=== PATIENT | male | born 1930 | race African-American/Black ===

== ENCOUNTER 2017-09-03 14:56 | Inpatient (IN) | payer MEDICARE, MEDICAID ==
[~2017-09-03] VITALS: Ht 182.9 cm; Wt 81.6 kg
[2017-09-03 16:39] LABS: BASOPHILS % (AUTO) 1.3 % (0.0-2.0); HEMATOCRIT 44.7 % (42.0-52.0); HEMOGLOBIN 13.7 G/DL (14.2-18.0); MEAN CORPUSCULAR VOLUME 100 FL (80-99); MONOCYTES % (AUTO) 14.9 % (1.0-10.0); NEUTROPHILS % (AUTO) 74.8 % (45.0-75.0); PLATELET COUNT 216 K/UL (150-450); RED BLOOD COUNT 4.48 M/UL (4.70-6.10); RED CELL DISTRIBUTION WIDTH 13.5 % (11.6-14.8); WHITE BLOOD COUNT 6.9 K/UL (4.8-10.8)
--- NOTE | 2017-09-03 16:51 | Diagnostic Imaging Report ---
Indication: Reason For Exam: WEAK Technique: One view of the chest Comparison: none Findings: The heart is normal in size. The aorta is tortuous and ectatic. The lungs and pleural spaces are clear. Impression: No acute process
[2017-09-03 16:56] LABS: ANION GAP 14 mmol/L (5-15); BLOOD UREA NITROGEN 39 mg/dL (7-18); CALCIUM 8.6 MG/DL (8.5-10.1); CARBON DIOXIDE 20 MMOL/L (21-32); CHLORIDE 108 MMOL/L (98-107); CREATININE 2.4 MG/DL (0.55-1.30); POTASSIUM 4.7 MMOL/L (3.5-5.1); SODIUM 142 MMOL/L (136-145)
[2017-09-03 17:05] LABS: APPEARANCE,URINE CLEAR; BILIRUBIN, URINE NEGATIVE (NEGATIVE); GLUCOSE, URINE (UA) NEGATIVE (NEGATIVE); KETONES,URINE 2+ (NEGATIVE); LEUKOCYTE ESTERASE ,URINE 1+ (NEGATIVE); NITRITE,URINE NEGATIVE (NEGATIVE); PH,URINE 5 (4.5-8.0); PROTEIN,URINE 3+ (NEGATIVE); UROBILINOGEN,URINE NORMAL MG/DL (0.0-1.0)
[2017-09-03 17:08] LABS: COLOR,URINE YELLOW
[2017-09-03 17:10] LABS: ALANINE AMINOTRANSFERASE 19 U/L (12-78); ALBUMIN 3.7 G/DL (3.4-5.0); ALBUMIN/GLOBULIN RATIO 0.9 (1.0-2.7); ALKALINE PHOSPHATASE 74 U/L (46-116); ASPARTATE AMINO TRANSFERASE 58 U/L (15-37); BILIRUBIN,TOTAL 0.4 MG/DL (0.2-1.0); CKMB 3.8 NG/ML (0.0-3.6); CREATINE KINASE 1336 U/L (26-308)
--- NOTE | 2017-09-03 18:13 | Emergency Room Report ---
History of Present Illness General Chief Complaint: Generalized Weakness Source: Patient, EMS Present Illness HPI 87-year-old male presents ED for evaluation. EMS states that patient is weak and unable to care for himself. [employer] told EMS that patient has not been eating well for the last few days has been bed bound. Patient states he feels weak. Has no energy. No appetite. Denies fevers chills. Denies chest pain shortness of breath. Patient states that he is not have any medical problems and is not taking medications. No aggravating relieving factors. Denies any other associated symptom Allergies: Coded Allergies: No Known Allergies (Unverified , 09/03/17) Patient History Past Medical History: none Past Surgical History: none Pertinent Family History: none Social History: Denies: smoking, alcohol use, drug use Immunizations: UTD Reviewed Nursing Documentation: PMH: Agreed, PSxH: Agreed Nursing Documentation-PM Past Medical History: No Stated History Review of Systems All Other Systems: negative except mentioned in HPI Physical Exam Vital Signs Date Time Temp Pulse Resp B/P (MAP) Pulse Ox O2 Delivery O2 Flow Rate FiO2 09/03/17 14:47 97.5 94 18 120/81 98 Room Air Sp02 EP Interpretation: reviewed, normal General Appearance: no apparent distress, alert, GCS 15, non-toxic, cachetic Head: normocephalic, atraumatic Eyes: bilateral eye normal inspection, bilateral eye PERRL ENT: hearing grossly normal, normal pharynx, no angioedema, normal voice Neck: full range of motion, supple/symm/no masses Respiratory: chest non-tender, lungs clear, normal breath sounds, speaking full sentences Cardiovascular #1: regular rate, rhythm, no edema Cardiovascular #2: 2+ carotid (R), 2+ carotid (L), 2+ radial (R), 2+ radial (L) , 2+ dorsalis pedis (R), 2+ dorsalis pedis (L) Gastrointestinal: normal bowel sounds, non tender, soft, non-distended, no guarding, no rebound Rectal: deferred Genitourinary: normal inspection, no CVA tenderness Musculoskeletal: back normal, gait/station normal, normal range of motion, non- tender Neurologic: alert, oriented x3, responsive, motor strength/tone normal, sensory intact, speech normal Psychiatric: judgement/insight normal, memory normal, mood/affect normal, no suicidal/homicidal ideation Reflexes: 3+ bicep (R), 3+ bicep (L), 3+ tricep (R), 3+ tricep (L), 3+ knee (R) , 3+ knee (L) Skin: normal color, no rash, warm/dry, well hydrated Lymphatic: no adenopathy Medical Decision Making Diagnostic Impression: Primary Impression: Failure to thrive Qualified Codes: R62.7 - Adult failure to thrive Additional Impressions: Renal insufficiency Rhabdomyolysis Qualified Codes: M62.82 - Rhabdomyolysis ER Course Hospital Course 87-year-old male presents ED for weakness, unable to care for self. Poor appetite Differential diagnoses include: sepsis, dehydration, rhabdo, UTI Clinical course patient placed on stretcher. On surveillance system monitor. After initial history and physical ordered labs, IV fluids, EKG, CXR Labs reviewed-BUN/Cr elevated,no leukocytosis, hemoglobin/hematocrit stable, CK > 1000, trop 0.046, BNP > 3000 EKG -PVCs CXR - no acute changes IVFs given. case discussed with Dr. Lemon and he agreed to accept the patient to his service for further care and support i. I feel this is a highly complex case requiring extensive working including EKG/Rhythm strip, Xray/CT/US, Blood/urine lab work, repeat exams while in ED, and administration of strong opiates/narcotics for pain control, admission to hospital or close patient follow up. Diagnosis - rhabdo, failure to thrive, renal insufficiency Admitted to telemetry in serious condition Labs Test 09/03/17 16:20 09/03/17 16:25 White Blood Count 6.9 K/UL (4.8-10.8) Red Blood Count 4.48 M/UL (4.70-6.10) Hemoglobin 13.7 G/DL (14.2-18.0) Hematocrit 44.7 % (42.0-52.0) Mean Corpuscular Volume 100 FL (80-99) Mean Corpuscular Hemoglobin 30.6 PG (27.0-31.0) Mean Corpuscular Hemoglobin Concent 30.7 G/DL (32.0-36.0) Red Cell Distribution Width 13.5 % (11.6-14.8) Platelet Count 216 K/UL (150-450) Mean Platelet Volume 6.0 FL (6.5-10.1) Neutrophils (%) (Auto) 74.8 % (45.0-75.0) Lymphocytes (%) (Auto) 9.0 % (20.0-45.0) Monocytes (%) (Auto) 14.9 % (1.0-10.0) Eosinophils (%) (Auto) 0.0 % (0.0-3.0) Basophils (%) (Auto) 1.3 % (0.0-2.0) Sodium Level 142 MMOL/L (136-145) Potassium Level 4.7 MMOL/L (3.5-5.1) Chloride Level 108 MMOL/L (98-107) Carbon Dioxide Level 20 MMOL/L (21-32) Anion Gap 14 mmol/L (5-15) Blood Urea Nitrogen 39 mg/dL (7-18) Creatinine 2.4 MG/DL (0.55-1.30) Estimat Glomerular Filtration Rate mL/min (>60) Glucose Level 127 MG/DL (74-106) Calcium Level 8.6 MG/DL (8.5-10.1) Total Bilirubin 0.4 MG/DL (0.2-1.0) Aspartate Amino Transf (AST/SGOT) 58 U/L (15-37) Alanine Aminotransferase (ALT/SGPT) 19 U/L (12-78) Alkaline Phosphatase 74 U/L (46-116) Total Creatine Kinase 1336 U/L (26-308) Creatine Kinase MB 3.8 NG/ML (0.0-3.6) Creatine Kinase MB Relative Index 0.2 Troponin I 0.046 ng/mL (0.000-0.056) Pro-B-Type Natriuretic Peptide 3050 pg/mL (0-125) Total Protein 7.7 G/DL (6.4-8.2) Albumin 3.7 G/DL (3.4-5.0) Globulin 4.0 g/dL Albumin/Globulin Ratio 0.9 (1.0-2.7) Urine Color Yellow Urine Appearance Clear Urine pH 5 (4.5-8.0) Urine Specific [place] 1.020 (1.005-1.035) Urine Protein 3+ (NEGATIVE) Urine Glucose (UA) Negative (NEGATIVE) Urine Ketones 2+ (NEGATIVE) Urine Occult Blood 4+ (NEGATIVE) Urine Nitrite Negative (NEGATIVE) Urine Bilirubin Negative (NEGATIVE) Urine Urobilinogen Normal MG/DL (0.0-1.0) Urine Leukocyte Esterase 1+ (NEGATIVE) Urine RBC 5-10 /HPF (0 - 0) Urine WBC 2-4 /HPF (0 - 0) Urine Squamous Epithelial Cells None /LPF (NONE/OCC) Urine Bacteria Few /HPF (NONE) EKG Diagnostic Results Rate: normal Rhythm: NSR ST Segments: other - PVCs ASA given to the pt in ED: No Rhythm Strip Diag. Results EP Interpretation: yes Rhythm: NSR, no ectopy Chest X-Ray Diagnostic Results Chest X-Ray Diagnostic Results : Chest X-Ray Ordered: Yes # of Views/Limited/Complete: 1 View Indication: Other - weakness EP Interpretation: Yes Interpretation: no consolidation, no effusion, no pneumothorax, no acute cardiopulmonary disease Impression: No acute disease Electronically Signed by: Electronically signed by Casey Temple MD Last Vital Signs Date Time Temp Pulse Resp B/P (MAP) Pulse Ox O2 Delivery O2 Flow Rate FiO2 09/03/17 14:47 97.5 94 18 120/81 98 Room Air Status: improved Disposition: ADMITTED INPATIENT Condition: Serious Referrals: NOT CHOSEN RAMIRO/,REFERRING (PCP) CASEY TEMPLE M.D. Sep 03, 2017 18:13
[2017-09-03 19:11] VITALS: BP 130/83
[2017-09-03 20:59] VITALS: BP 141/83
[2017-09-03] MEDS ORDERED: Miralax 17gm pkt ORAL PRN (21:15)
[2017-09-03] MEDS ORDERED: Nitroglycerin Subl 0.4mg tab SL PRN (21:15)
[2017-09-03] MEDS ORDERED: Acetaminophen 650 MG SUPP RECTAL PRN (21:15)
[2017-09-03] MEDS ORDERED: Milk of Magnesia 30ml Ud ORAL PRN (21:15)
[2017-09-03 21:44] VITALS: BP 155/75
[2017-09-03] MEDS: D5 1/2NS w/KCl 20mEq 1,000 ML IV SCH (22:41)
[2017-09-03] MEDS: Heparin 5000 units/ml inj SUBQ SCH (22:42)
[2017-09-04] MEDS: Heparin 5000 units/ml inj SUBQ SCH ×3 (05:37→21:10)
[2017-09-04 07:15] LABS: INR 1.1 (0.9-1.1)
[2017-09-04 07:40] LABS: ALANINE AMINOTRANSFERASE 19 U/L (12-78); ALBUMIN 2.8 G/DL (3.4-5.0); ALBUMIN/GLOBULIN RATIO 0.8 (1.0-2.7); ALKALINE PHOSPHATASE 60 U/L (46-116); ANION GAP 11 mmol/L (5-15); ASPARTATE AMINO TRANSFERASE 46 U/L (15-37); BILIRUBIN,TOTAL 0.3 MG/DL (0.2-1.0); BLOOD UREA NITROGEN 36 mg/dL (7-18); CALCIUM 7.6 MG/DL (8.5-10.1); CARBON DIOXIDE 21 MMOL/L (21-32); CHLORIDE 112 MMOL/L (98-107); CHOLESTEROL 115 MG/DL (< 200); CREATININE 2.2 MG/DL (0.55-1.30); PHOSPHORUS 2.7 MG/DL (2.5-4.9); POTASSIUM 4.1 MMOL/L (3.5-5.1); SODIUM 144 MMOL/L (136-145)
[2017-09-04] MEDS: Docusate 100mg cap ORAL SCH ×2 (08:15→21:08)
[2017-09-04] MEDS: Aspirin Baby 81mg ORAL SCH (08:15)
[2017-09-04 09:00] VITALS: BP 109/67
[2017-09-04] MEDS ORDERED: Pneumococcal Vaccine 25mcg/0.5ml IM ONE (10:00)
[2017-09-04] MEDS ORDERED: Flu Vaccine Quadrivalent 0.5ml IM ONE (10:00)
[2017-09-04] MEDS: D5 1/2NS w/KCl 20mEq 1,000 ML IV SCH (11:55)
[2017-09-04 12:00] VITALS: BP 124/88
[2017-09-04 16:00] VITALS: BP 137/82
--- NOTE | 2017-09-04 16:44 | History & Physical ---
History and Physical History & Physicial Dictated for Int Med-Dr Lemon no. [id number]. VANDANA LY Sep 04, 2017 16:44
--- NOTE | 2017-09-04 17:30 | History and Physical Report ---
DATE OF ADMISSION: 09/03/2017 CHIEF COMPLAINT: The patient is an 87-year-old male, who presents with a chief complaint of generalized weakness. HISTORY OF PRESENT ILLNESS: The patient states that he lives alone. The patient states he has become increasingly weak. The patient states, "just take me to the cemetery." The patient presented to [place] emergency room. The patient was admitted for generalized weakness. PAST MEDICAL HISTORY: The patient denies. PAST SURGICAL HISTORY: The patient denies. CURRENT MEDICATIONS: None. ALLERGIES: No known drug allergies. SOCIAL HISTORY: The patient is single and lives alone. The patient admits to occasional tobacco use. The patient has occasional alcohol use. REVIEW OF SYSTEMS: CONSTITUTIONAL: The patient denies weight loss or weight gain. The patient denies fevers or chills. HEENT: The patient denies ear or throat pain. The patient denies headache. CARDIOVASCULAR: The patient denies palpitations or chest pain. CHEST: The patient denies wheeze or shortness of breath. ABDOMEN: The patient denies nausea, vomiting, diarrhea, or constipation. GENITOURINARY: The patient denies dysuria or increased frequency of urination. NEUROMUSCULAR: The patient complains of generalized weakness as above. The patient denies seizures. PHYSICAL EXAMINATION: VITAL SIGNS: Temperature 97.4, respirations 18, pulse 63, and blood pressure 109/67. GENERAL: The patient is well-developed and well-nourished, thin-appearing elderly male, in no apparent distress. HEENT: Eyes, pupils are equal and responsive to light and accommodation. Extraocular movements are intact. NECK: Supple without lymphadenopathy. CHEST: Lungs are clear to auscultation bilaterally without wheezes or rales. CARDIOVASCULAR: Regular rate. S1 and S2 are normal without murmurs, rubs, or gallops. ABDOMEN: Soft, nontender, and nondistended. Positive bowel sounds. No evidence of hepatosplenomegaly. Currently, no rebound or guarding noted. EXTREMITIES: Negative for clubbing, cyanosis, or edema. RECTAL/GENITAL: Refused. NEUROLOGIC: Cranial nerves II to XII are grossly intact without focal deficits. Motor strength is 5/5 bilaterally. Deep tendon reflexes are 2+ plantar. LABORATORY STUDIES: WBC 6.9, hemoglobin 13.7, hematocrit 44.7, and platelets 216,000. Sodium 143, potassium 4.7, chloride 108, CO2 20, BUN 39, creatinine 2.4, and glucose 127. BNP elevated at 3050. Troponin elevated at 0.076. Chest x-ray was reported as no acute process. ASSESSMENT: This is an 87-year-old male. 1. Generalized weakness. 2. Elevated troponin. 3. Congestive heart failure. 4. Renal failure. TREATMENT: 1. Generalized weakness. This may be secondary to acute myocardial infarction versus acute renal failure. We will follow recommendations of Cardiology. We will follow recommendations of Nephrology. 2. Elevated troponin/congestive heart failure. Cardiology consultation was obtained with Dr. Lawrence Thorne. Serial troponin levels will be performed. An echocardiogram is pending. We will follow recommendations of Cardiology. 3. Renal failure. This may be prerenal with dehydration or may be acute on chronic renal failure. A renal ultrasound is pending. A Nephrology consultation was obtained with Dr. Wiley. Alo Skinner M.D. DR: DUC JOB#: [id number] CC:
--- NOTE | 2017-09-04 17:41 | Cardiac Electrophysiology PN ---
Subjective Subjective [id number] Objective Last 24 Hour Vital Signs Date Time Temp Pulse Resp B/P (MAP) Pulse Ox O2 Delivery O2 Flow Rate FiO2 09/04/17 12:00 62 09/04/17 12:00 97.7 74 19 124/88 97 Room Air 09/04/17 09:00 97.4 63 18 109/67 97 Room Air 09/04/17 08:00 63 09/04/17 04:00 69 09/04/17 00:00 72 09/03/17 21:44 97.9 70 18 155/75 96 Room Air 09/03/17 21:24 83 09/03/17 21:12 97.5 87 16 141/83 98 Room Air 09/03/17 20:59 87 16 141/83 98 Room Air 09/03/17 19:11 97.5 88 28 130/83 98 Room Air Intake and Output 09/03/17 09/04/17 19:00 07:00 Output Total 100 ml Balance -100 ml Output Urine Total 100 ml # Voids 1 Laboratory Tests Test 09/04/17 06:20 Prothrombin Time 11.1 SEC (9.30-11.50) Prothromb Time International Ratio 1.1 (0.9-1.1) Activated Partial Thromboplast Time 37 SEC (23-33) H Sodium Level 144 MMOL/L (136-145) Potassium Level 4.1 MMOL/L (3.5-5.1) Chloride Level 112 MMOL/L (98-107) H Carbon Dioxide Level 21 MMOL/L (21-32) Anion Gap 11 mmol/L (5-15) Blood Urea Nitrogen 36 mg/dL (7-18) H Creatinine 2.2 MG/DL (0.55-1.30) H Estimat Glomerular Filtration Rate mL/min (>60) Glucose Level 105 MG/DL (74-106) Calcium Level 7.6 MG/DL (8.5-10.1) L Phosphorus Level 2.7 MG/DL (2.5-4.9) Magnesium Level 2.1 MG/DL (1.8-2.4) Total Bilirubin 0.3 MG/DL (0.2-1.0) Aspartate Amino Transf (AST/SGOT) 46 U/L (15-37) H Alanine Aminotransferase (ALT/SGPT) 19 U/L (12-78) Alkaline Phosphatase 60 U/L (46-116) Troponin I 0.076 ng/mL (0.000-0.056) Total Protein 6.2 G/DL (6.4-8.2) L Albumin 2.8 G/DL (3.4-5.0) L Globulin 3.4 g/dL Albumin/Globulin Ratio 0.8 (1.0-2.7) L Cholesterol Level 115 MG/DL (< 200) Thyroid Stimulating Hormone (TSH) 1.449 uiU/mL (0.358-3.740) ROSAS CABEZAS Sep 04, 2017 17:41
[2017-09-05 00:32] VITALS: BP 115/64
--- NOTE | 2017-09-05 00:45 | Consultation ---
DATE OF CONSULTATION: 09/04/2017 CARDIOLOGY CONSULTATION CONSULTING PHYSICIAN: Lawrence Thorne M.D. REFERRING PHYSICIAN: Aj Lemon M.D. REASON FOR CONSULTATION: Generalized weakness. HISTORY OF PRESENT ILLNESS: The patient is an 87-year-old gentleman with no prior past medical or surgical history, who was brought to the emergency room for generalized weakness. The patient lives alone and he is feeling that he has been increasingly weak and weak and states just take me to cemetery. In the emergency room, the patient was admitted for generalized weakness and was found also to have mildly elevated troponin. He denies any chest pain or shortness of breath. REVIEW OF SYSTEMS: Review of Systems was performed and was negative other than what was mentioned in history of present illness. PAST MEDICAL HISTORY: None. PAST SURGICAL HISTORY: None. MEDICATIONS: Medications at home are none. ALLERGIES: He has no known drug allergies. PHYSICAL EXAMINATION: VITAL SIGNS: Blood pressure is 124/88, pulse 74, respirations 19, and he is afebrile. HEAD AND NECK: Shows no JVD or carotid bruits. LUNGS: Clear. CARDIOVASCULAR: Shows regular S1 and S2 with no gallop or murmur. ABDOMEN: Soft. EXTREMITIES: No pitting edema. LABORATORY DATA: White count 6.9, hemoglobin 13.7, hematocrit 44.7, platelets 216. Sodium 144, potassium 4.1, BUN of 36, creatinine 2.2, and glucose of 105. His troponin 0.046 and 0.076. BNP 3050. The CK is 1336. ASSESSMENT AND PLAN: 1. Elevated troponin, this could be due to the patient's renal failure, levels are not too high at 0.04 and 0.07. I will get another echocardiogram and repeat troponin in the morning. Repeat EKG as well. 2. Troponin leak., The levels are flat and is not too high, could be due to renal failure in view of creatinine of 2.2. 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 The patient has occasional premature ventricular contractions as well. He also underwent an echocardiogram, which showed ejection fraction of 60% to 65% and no wall motion abnormality. We will repeat EKG in the morning and give the patient aspirin and low-dose beta-gilma and check lipid profile. 3. Elevated CK of 1336, could be the cause of the patient's renal failure with rhabdomyolysis. 4. Renal failure. The patient has no prior history. Further evaluation by Nephrology. Thank you very much, . , for allowing me to participate in the care of this patient. Please do not hesitate to contact me for any questions regarding my evaluation. Lawrence Thorne M.D. DR: Ora JOB#: [id number] CC:
[2017-09-05] MEDS: D5 1/2NS w/KCl 20mEq 1,000 ML IV SCH ×2 (00:52→13:48)
[2017-09-05 04:39] VITALS: BP 138/83
[2017-09-05] MEDS: Heparin 5000 units/ml inj SUBQ SCH ×3 (05:48→21:11)
[2017-09-05 07:26] LABS: BASOPHILS % (AUTO) 0.9 % (0.0-2.0); HEMATOCRIT 38.7 % (42.0-52.0); HEMOGLOBIN 12.5 G/DL (14.2-18.0); LYMPHOCYTES % (AUTO) 26.7 % (20.0-45.0); MEAN CORPUSCULAR VOLUME 100 FL (80-99); MONOCYTES % (AUTO) 15.5 % (1.0-10.0); NEUTROPHILS % (AUTO) 56.8 % (45.0-75.0); PLATELET COUNT 164 K/UL (150-450); RED BLOOD COUNT 3.87 M/UL (4.70-6.10); RED CELL DISTRIBUTION WIDTH 13.6 % (11.6-14.8); WHITE BLOOD COUNT 5.3 K/UL (4.8-10.8)
[2017-09-05 07:52] LABS: ANION GAP 10 mmol/L (5-15); BLOOD UREA NITROGEN 31 mg/dL (7-18); CALCIUM 7.9 MG/DL (8.5-10.1); CARBON DIOXIDE 21 MMOL/L (21-32); CHLORIDE 113 MMOL/L (98-107); POTASSIUM 4.6 MMOL/L (3.5-5.1); SODIUM 144 MMOL/L (136-145)
[2017-09-05 08:00] VITALS: BP 123/78
[2017-09-05 08:26] LABS: CREATINE KINASE 764 U/L (26-308)
[2017-09-05] MEDS: Metoprolol Succinate XL 25mg tab ORAL SCH (08:42)
[2017-09-05] MEDS: Docusate 100mg cap ORAL SCH ×2 (08:42→21:08)
[2017-09-05] MEDS: Aspirin Baby 81mg ORAL SCH (08:42)
--- NOTE | 2017-09-05 11:58 | Cardiac Electrophysiology PN ---
Assessment/Plan Assessment/Plan 1. Elevated troponin, likely due to the patient's renal failure, The levels are not too high at 0.04 and 0.07. 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 The patient has occasional premature ventricular contractions as well. Echocardiogram showed ejection fraction of 60% to 65% and no wall motion abnormality. Continue aspirin and Toprol XL 25 daily. 2. Short run of SVT. Continue Betablocker. 3. Elevated CK of 1336, could be the cause of the patient's renal failure with rhabdomyolysis. 4. Renal failure. Further evaluation by Nephrology. AMBROSE RN Subjective Subjective Feeling weak. No chest pain or SOB. Objective Last 24 Hour Vital Signs Date Time Temp Pulse Resp B/P (MAP) Pulse Ox O2 Delivery O2 Flow Rate FiO2 09/05/17 08:42 69 123/78 09/05/17 08:00 67 09/05/17 08:00 98.1 69 20 123/78 97 09/05/17 04:39 96.2 74 18 138/83 95 Room Air 09/05/17 04:00 62 09/05/17 00:32 96.4 62 18 115/64 96 Room Air 09/05/17 00:00 75 09/04/17 20:14 99.3 67 18 09/04/17 20:00 62 09/04/17 16:00 98.3 63 19 137/82 96 Room Air 09/04/17 16:00 61 09/04/17 12:00 62 09/04/17 12:00 97.7 74 19 124/88 97 Room Air Intake and Output 09/04/17 09/05/17 19:00 07:00 Intake Total 395 ml 835 ml Output Total 200 ml Balance 395 ml 635 ml Intake Oral 320 ml IV Total 75 ml 835 ml Output Urine Total 200 ml # Voids 3 Laboratory Tests Test 09/05/17 06:10 White Blood Count 5.3 K/UL (4.8-10.8) Red Blood Count 3.87 M/UL (4.70-6.10) L Hemoglobin 12.5 G/DL (14.2-18.0) L Hematocrit 38.7 % (42.0-52.0) L Mean Corpuscular Volume 100 FL (80-99) H Mean Corpuscular Hemoglobin 32.3 PG (27.0-31.0) H Mean Corpuscular Hemoglobin Concent 32.3 G/DL (32.0-36.0) Red Cell Distribution Width 13.6 % (11.6-14.8) Platelet Count 164 K/UL (150-450) Mean Platelet Volume 6.5 FL (6.5-10.1) Neutrophils (%) (Auto) 56.8 % (45.0-75.0) Lymphocytes (%) (Auto) 26.7 % (20.0-45.0) Monocytes (%) (Auto) 15.5 % (1.0-10.0) H Eosinophils (%) (Auto) 0.0 % (0.0-3.0) Basophils (%) (Auto) 0.9 % (0.0-2.0) Sodium Level 144 MMOL/L (136-145) Potassium Level 4.6 MMOL/L (3.5-5.1) Chloride Level 113 MMOL/L (98-107) H Carbon Dioxide Level 21 MMOL/L (21-32) Anion Gap 10 mmol/L (5-15) Blood Urea Nitrogen 31 mg/dL (7-18) H Creatinine 2.0 MG/DL (0.55-1.30) H Estimat Glomerular Filtration Rate mL/min (>60) Glucose Level 100 MG/DL (74-106) Calcium Level 7.9 MG/DL (8.5-10.1) L Total Creatine Kinase 764 U/L (26-308) H Troponin I 0.068 ng/mL (0.000-0.056) Pro-B-Type Natriuretic Peptide 1301 pg/mL (0-125) H Objective HEAD AND NECK: No JVD or carotid bruits. LUNGS: Clear. CARDIOVASCULAR: Shows regular S1 and S2 with no gallop or murmur. ABDOMEN: Soft. EXTREMITIES: No pitting edema. ROSAS CABEZAS Sep 05, 2017 11:58
[2017-09-05 12:00] VITALS: BP 123/73
--- NOTE | 2017-09-05 13:09 | Internal Med Progress Note ---
Subjective Date of Service: Sep 05, 2017 Physician Name Alo Ly Attending Physician Aj Lemon MD Current Medications Medications (Trade) Dose Ordered Sig/Josefina Route PRN Reason Start Time Stop Time Status Last Admin Dose Admin Acetaminophen (Tylenol) 650 mg Q4H PRN ORAL Mild Pain (Scale 1-3)/Fever 09/03/17 21:15 10/03/17 21:14 Acetaminophen (Tylenol) 650 mg Q4H PRN RECTAL Mild Pain (Pain Scale 1-3) 09/03/17 21:15 10/03/17 21:14 Aspirin (ASA) 81 mg DAILY ORAL 09/04/17 09:00 10/04/17 08:59 09/05/17 08:42 Bisacodyl (Dulcolax) 10 mg DAILYPRN PRN RECTAL Constipation 3rd Line Agent 09/03/17 21:15 10/03/17 21:14 Dextrose (Dextrose 50%) STAT PRN IV Hypoglycemia 09/03/17 21:15 10/03/17 21:14 Dextrose/ Electrolytes 1,000 ml @ 75 mls/hr [id number] IV 09/03/17 22:30 10/03/17 22:29 09/05/17 00:52 Docusate Sodium (Colace) 100 mg EVERY 12 HOURS ORAL 09/04/17 09:00 10/04/17 08:59 09/05/17 08:42 Heparin Sodium (Porcine) (Heparin 5000 units/ml) 5,000 units EVERY 8 HOURS SUBQ 09/03/17 22:00 10/03/17 21:59 09/05/17 05:48 Magnesium Hydroxide (Mom) 30 ml HSPRN PRN ORAL Constipation 2nd Line Agent 09/03/17 21:15 10/03/17 21:14 Metoprolol Succinate (Toprol XL) 25 mg DAILY ORAL 09/05/17 09:00 10/05/17 08:59 09/05/17 08:42 Nitroglycerin (Ntg) 0.4 mg Q5MIN X 3 DOSES PRN SL Prn Chest Pain 09/03/17 21:15 10/03/17 21:14 Ondansetron HCl (Zofran) 4 mg Q6H PRN IVP Nausea & Vomiting 09/03/17 21:15 10/03/17 21:14 Polyethylene Glycol (Miralax) 17 gm DAILYPRN PRN ORAL Constipation 1st Line agent 09/03/17 21:15 10/03/17 21:14 Allergies: Coded Allergies: No Known Allergies (Unverified , 09/03/17) ROS Limited/Unobtainable: No Constitutional: Reports: no symptoms HEENT: Reports: no symptoms Cardiovascular: Reports: no symptoms Respiratory: Reports: no symptoms Gastrointestinal/Abdominal: Reports: no symptoms Genitourinary: Reports: no symptoms Neurologic/Psychiatric: Reports: weakness Subjective 87 YO M admitted with gen weakness. Now rhabdomyolysis and renal failure-await renal consult. Cover for Int Med-Dr Lemon Objective Last Vital Signs Date Time Temp Pulse Resp B/P (MAP) Pulse Ox O2 Delivery O2 Flow Rate FiO2 09/05/17 12:00 98.1 66 19 123/73 95 09/05/17 04:39 Room Air General Appearance: WD/WN, no apparent distress, alert EENT: PERRL/EOMI, normal ENT inspection, TMs normal Neck: non-tender, normal alignment, supple, normal inspection Cardiovascular: normal peripheral pulses, normal rate, regular rhythm, no gallop/murmur, no JVD Respiratory/Chest: chest wall non-tender, lungs clear, normal breath sounds, no respiratory distress, no accessory muscle use Abdomen: normal bowel sounds, non tender, soft, no organomegaly, no mass Extremities: normal range of motion, non-tender Skin: normal pigmentation, warm/dry Laboratory Tests Test 09/05/17 06:10 White Blood Count 5.3 K/UL (4.8-10.8) Red Blood Count 3.87 M/UL (4.70-6.10) L Hemoglobin 12.5 G/DL (14.2-18.0) L Hematocrit 38.7 % (42.0-52.0) L Mean Corpuscular Volume 100 FL (80-99) H Mean Corpuscular Hemoglobin 32.3 PG (27.0-31.0) H Mean Corpuscular Hemoglobin Concent 32.3 G/DL (32.0-36.0) Red Cell Distribution Width 13.6 % (11.6-14.8) Platelet Count 164 K/UL (150-450) Mean Platelet Volume 6.5 FL (6.5-10.1) Neutrophils (%) (Auto) 56.8 % (45.0-75.0) Lymphocytes (%) (Auto) 26.7 % (20.0-45.0) Monocytes (%) (Auto) 15.5 % (1.0-10.0) H Eosinophils (%) (Auto) 0.0 % (0.0-3.0) Basophils (%) (Auto) 0.9 % (0.0-2.0) Sodium Level 144 MMOL/L (136-145) Potassium Level 4.6 MMOL/L (3.5-5.1) Chloride Level 113 MMOL/L (98-107) H Carbon Dioxide Level 21 MMOL/L (21-32) Anion Gap 10 mmol/L (5-15) Blood Urea Nitrogen 31 mg/dL (7-18) H Creatinine 2.0 MG/DL (0.55-1.30) H Estimat Glomerular Filtration Rate mL/min (>60) Glucose Level 100 MG/DL (74-106) Calcium Level 7.9 MG/DL (8.5-10.1) L Total Creatine Kinase 764 U/L (26-308) H Troponin I 0.068 ng/mL (0.000-0.056) Pro-B-Type Natriuretic Peptide 1301 pg/mL (0-125) H Intake and Output 09/04/17 09/05/17 19:00 07:00 Intake Total 395 ml 835 ml Output Total 200 ml Balance 395 ml 635 ml Intake Oral 320 ml IV Total 75 ml 835 ml Output Urine Total 200 ml # Voids 3 Assessment/Plan Problem List: (1) Generalized weakness (2) Elevated troponin I level Assessment & Plan: ?due to renal failure? See cardiology note. (3) CHF (congestive heart failure) Assessment & Plan: See cardiology consult. (4) Renal failure Assessment & Plan: ?Dehydration?-continue IV fluids Await renal ultrasound and nephrology consult. (5) Rhabdomyolysis Assessment & Plan: Cont IV fluids. Status: not improved ALO LY Sep 05, 2017 13:09
[2017-09-05 16:00] VITALS: BP 116/58
[2017-09-05 20:20] VITALS: BP 128/76
[2017-09-06] VITALS: BP 116/71
[2017-09-06] MEDS: D5 1/2NS w/KCl 20mEq 1,000 ML IV SCH (04:00)
[2017-09-06 04:10] VITALS: BP 134/90
[2017-09-06] MEDS: Heparin 5000 units/ml inj SUBQ SCH ×3 (06:00→21:19)
[2017-09-06 07:36] LABS: CREATINE KINASE 878 U/L (26-308)
[2017-09-06 07:41] LABS: BASOPHILS % (AUTO) 0.4 % (0.0-2.0); HEMATOCRIT 36.2 % (42.0-52.0); HEMOGLOBIN 11.7 G/DL (14.2-18.0); LYMPHOCYTES % (AUTO) 25.3 % (20.0-45.0); MEAN CORPUSCULAR VOLUME 99 FL (80-99); NEUTROPHILS % (AUTO) 61.2 % (45.0-75.0); PLATELET COUNT 188 K/UL (150-450); RED BLOOD COUNT 3.64 M/UL (4.70-6.10); RED CELL DISTRIBUTION WIDTH 13.6 % (11.6-14.8); WHITE BLOOD COUNT 6.5 K/UL (4.8-10.8)
[2017-09-06 08:00] VITALS: BP 132/88
[2017-09-06 08:19] LABS: ANION GAP 12 mmol/L (5-15); BLOOD UREA NITROGEN 34 mg/dL (7-18); CALCIUM 7.4 MG/DL (8.5-10.1); CARBON DIOXIDE 19 MMOL/L (21-32); CHLORIDE 113 MMOL/L (98-107); POTASSIUM 4.8 MMOL/L (3.5-5.1); SODIUM 144 MMOL/L (136-145)
[2017-09-06] MEDS: Aspirin Baby 81mg ORAL SCH (08:37)
[2017-09-06] MEDS: Metoprolol Succinate XL 25mg tab ORAL SCH (08:38)
[2017-09-06] MEDS: Docusate 100mg cap ORAL SCH ×3 (08:38→18:00)
--- NOTE | 2017-09-06 08:47 | Cardiac Electrophysiology PN ---
Assessment/Plan Assessment/Plan 1. Elevated troponin, likely due to renal failure,The levels are not too high and flat at 0.04 and 0.07 and 0.08. No chest pain. 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 The patient has occasional premature ventricular contractions as well. Echocardiogram showed ejection fraction of 60% to 65% and no wall motion abnormality. Continue aspirin and Toprol XL 25 daily. 2. Short run of SVT. Continue Betablocker. 3. Elevated CK of 1336, could be the cause of the patient's renal failure with rhabdomyolysis. 4. Renal failure. Cr 2.0 5. SNIF placement pending DW RN Subjective Subjective Feeling weak. No chest pain or SOB or arrhythmias overnight. Objective Last 24 Hour Vital Signs Date Time Temp Pulse Resp B/P (MAP) Pulse Ox O2 Delivery O2 Flow Rate FiO2 09/06/17 08:38 73 134/90 09/06/17 04:10 99.7 73 20 134/90 94 Room Air 09/06/17 04:00 76 09/06/17 00:00 98.1 70 18 116/71 96 09/06/17 00:00 69 09/05/17 20:20 98.4 63 17 128/76 93 09/05/17 20:00 62 09/05/17 16:00 66 09/05/17 16:00 97.7 77 18 116/58 97 09/05/17 12:00 98.1 66 19 123/73 95 09/05/17 12:00 69 Intake and Output 09/05/17 09/06/17 19:00 07:00 Intake Total 360 ml Balance 360 ml Intake Oral 360 ml # Voids 4 Laboratory Tests Test 09/06/17 04:40 White Blood Count 6.5 K/UL (4.8-10.8) Red Blood Count 3.64 M/UL (4.70-6.10) L Hemoglobin 11.7 G/DL (14.2-18.0) L Hematocrit 36.2 % (42.0-52.0) L Mean Corpuscular Volume 99 FL (80-99) Mean Corpuscular Hemoglobin 32.1 PG (27.0-31.0) H Mean Corpuscular Hemoglobin Concent 32.3 G/DL (32.0-36.0) Red Cell Distribution Width 13.6 % (11.6-14.8) Platelet Count 188 K/UL (150-450) Mean Platelet Volume 6.4 FL (6.5-10.1) L Neutrophils (%) (Auto) 61.2 % (45.0-75.0) Lymphocytes (%) (Auto) 25.3 % (20.0-45.0) Monocytes (%) (Auto) 13.0 % (1.0-10.0) H Eosinophils (%) (Auto) 0.0 % (0.0-3.0) Basophils (%) (Auto) 0.4 % (0.0-2.0) Sodium Level 144 MMOL/L (136-145) Potassium Level 4.8 MMOL/L (3.5-5.1) Chloride Level 113 MMOL/L (98-107) H Carbon Dioxide Level 19 MMOL/L (21-32) L Anion Gap 12 mmol/L (5-15) Blood Urea Nitrogen 34 mg/dL (7-18) H Creatinine 2.0 MG/DL (0.55-1.30) H Estimat Glomerular Filtration Rate mL/min (>60) Glucose Level 107 MG/DL (74-106) H Calcium Level 7.4 MG/DL (8.5-10.1) L Total Creatine Kinase 878 U/L (26-308) H Troponin I 0.081 ng/mL (0.000-0.056) Pro-B-Type Natriuretic Peptide 2793 pg/mL (0-125) H Objective HEAD AND NECK: No JVD . LUNGS: Clear. CARDIOVASCULAR: Regular S1 and S2 with no gallop or murmur. ABDOMEN: Soft. EXTREMITIES: No pitting edema. ROSAS CABEZAS Sep 06, 2017 08:47
--- NOTE | 2017-09-06 10:17 | Consultation ---
Consult Note Consult Note asked to eval for renal failure- CHIEF COMPLAINT: The patient is an 87-year-old male, who presents with a chief complaint of generalized weakness. The patient states that he lives alone. The patient states he has become increasingly weak. The patient states, "[place] take [place] the [place]." interviewed examined data reviewed Assessment/Plan Status: renal failure- ? acute ? Rhabdo ?Underlying CKD , Proteinuria Elevated troponin : Echo ejection fraction of 60% to 65% and no wall motion abnormality. Anemia Plan: Hydrate- Monitor CPK avoid Nephrotoxics Monitor renal parameters keep BP in check start Flomax per orders CORINNE WIGGINS Sep 06, 2017 10:17
[2017-09-06 10:53] LABS: CHOLESTEROL 99 MG/DL (< 200); HDL CHOLESTEROL 38 MG/DL (40-60); PHOSPHORUS 2.3 MG/DL (2.5-4.9); TRIGLYCERIDES 63 MG/DL (30-150)
[2017-09-06] MEDS: D5 1/2NS 1,000 ML IV SCH (11:25)
[2017-09-06] MEDS: Tamsulosin 0.4mg cap ORAL SCH ×2 (11:26→21:17)
--- NOTE | 2017-09-06 11:47 | Internal Med Progress Note ---
Subjective Date of Service: Sep 06, 2017 Physician Name SusanneVandana Attending Physician Aj Lemon MD Current Medications Medications (Trade) Dose Ordered Sig/Josefina Route PRN Reason Start Time Stop Time Status Last Admin Dose Admin Acetaminophen (Tylenol) 650 mg Q4H PRN RECTAL Mild Pain (Pain Scale 1-3) 09/03/17 21:15 10/03/17 21:14 Aspirin (ASA) 81 mg DAILY ORAL 09/04/17 09:00 10/04/17 08:59 09/06/17 08:37 Bisacodyl (Dulcolax) 10 mg DAILYPRN PRN RECTAL Constipation 3rd Line Agent 09/03/17 21:15 10/03/17 21:14 Dextrose (Dextrose 50%) STAT PRN IV Hypoglycemia 09/03/17 21:15 10/03/17 21:14 Dextrose/Sodium Chloride 1,000 ml @ 75 mls/hr [id number] IV 09/06/17 11:00 10/06/17 10:59 09/06/17 11:25 Docusate Sodium (Colace) 100 mg TID ORAL 09/06/17 13:00 10/04/17 08:59 Heparin Sodium (Porcine) (Heparin 5000 units/ml) 5,000 units EVERY 8 HOURS SUBQ 09/03/17 22:00 10/03/17 21:59 09/05/17 21:11 Magnesium Hydroxide (Mom) 30 ml HSPRN PRN ORAL Constipation 2nd Line Agent 09/03/17 21:15 10/03/17 21:14 Metoprolol Succinate (Toprol XL) 25 mg DAILY ORAL 09/05/17 09:00 10/05/17 08:59 09/06/17 08:38 Nitroglycerin (Ntg) 0.4 mg Q5MIN X 3 DOSES PRN SL Prn Chest Pain 09/03/17 21:15 10/03/17 21:14 Ondansetron HCl (Zofran) 4 mg Q6H PRN IVP Nausea & Vomiting 09/03/17 21:15 10/03/17 21:14 Polyethylene Glycol (Miralax) 17 gm DAILYPRN PRN ORAL Constipation 1st Line agent 09/03/17 21:15 10/03/17 21:14 Tamsulosin HCl (Flomax) 0.4 mg BID ORAL 09/06/17 11:00 10/06/17 10:59 09/06/17 11:26 Allergies: Coded Allergies: No Known Allergies (Unverified , 09/03/17) ROS Limited/Unobtainable: No Constitutional: Reports: no symptoms HEENT: Reports: no symptoms Cardiovascular: Reports: no symptoms Respiratory: Reports: no symptoms Gastrointestinal/Abdominal: Reports: no symptoms Genitourinary: Reports: no symptoms Neurologic/Psychiatric: Reports: no symptoms Subjective 87 YO M admitted with gen weakness. Now rhabdomyolysis and renal failure. Cover for Int Med-Dr Lemon Objective Last Vital Signs Date Time Temp Pulse Resp B/P (MAP) Pulse Ox O2 Delivery O2 Flow Rate FiO2 09/06/17 08:38 73 134/90 09/06/17 08:00 99.3 22 96 09/06/17 04:10 Room Air Laboratory Tests Test 09/06/17 04:40 White Blood Count 6.5 K/UL (4.8-10.8) Red Blood Count 3.64 M/UL (4.70-6.10) L Hemoglobin 11.7 G/DL (14.2-18.0) L Hematocrit 36.2 % (42.0-52.0) L Mean Corpuscular Volume 99 FL (80-99) Mean Corpuscular Hemoglobin 32.1 PG (27.0-31.0) H Mean Corpuscular Hemoglobin Concent 32.3 G/DL (32.0-36.0) Red Cell Distribution Width 13.6 % (11.6-14.8) Platelet Count 188 K/UL (150-450) Mean Platelet Volume 6.4 FL (6.5-10.1) L Neutrophils (%) (Auto) 61.2 % (45.0-75.0) Lymphocytes (%) (Auto) 25.3 % (20.0-45.0) Monocytes (%) (Auto) 13.0 % (1.0-10.0) H Eosinophils (%) (Auto) 0.0 % (0.0-3.0) Basophils (%) (Auto) 0.4 % (0.0-2.0) Sodium Level 144 MMOL/L (136-145) Potassium Level 4.8 MMOL/L (3.5-5.1) Chloride Level 113 MMOL/L (98-107) H Carbon Dioxide Level 19 MMOL/L (21-32) L Anion Gap 12 mmol/L (5-15) Blood Urea Nitrogen 34 mg/dL (7-18) H Creatinine 2.0 MG/DL (0.55-1.30) H Estimat Glomerular Filtration Rate mL/min (>60) Glucose Level 107 MG/DL (74-106) H Hemoglobin A1c 5.9 % (4.3-6.0) Uric Acid 7.9 MG/DL (2.6-7.2) H Calcium Level 7.4 MG/DL (8.5-10.1) L Phosphorus Level 2.3 MG/DL (2.5-4.9) L Magnesium Level 1.9 MG/DL (1.8-2.4) Total Creatine Kinase 878 U/L (26-308) H Troponin I 0.081 ng/mL (0.000-0.056) C-Reactive Protein, Quantitative 3.4 mg/dL (0.00-0.90) H Pro-B-Type Natriuretic Peptide 2793 pg/mL (0-125) H Triglycerides Level 63 MG/DL (30-150) Cholesterol Level 99 MG/DL (< 200) LDL Cholesterol 50 mg/dL (<100) HDL Cholesterol 38 MG/DL (40-60) L Cholesterol/HDL Ratio 2.6 (3.3-4.4) L Vitamin B12 Level 302 PG/ML (193-986) Intake and Output 09/05/17 09/06/17 19:00 07:00 Intake Total 360 ml 360 ml Balance 360 ml 360 ml Intake Oral 360 ml 360 ml # Voids 4 4 Objective General Appearance: WD/WN, no apparent distress, alert EENT: PERRL/EOMI, normal ENT inspection, TMs normal Neck: non-tender, normal alignment, supple, normal inspection Cardiovascular: normal peripheral pulses, normal rate, regular rhythm, no gallop/murmur, no JVD Respiratory/Chest: chest wall non-tender, lungs clear, normal breath sounds, no respiratory distress, no accessory muscle use Abdomen: normal bowel sounds, non tender, soft, no organomegaly, no mass Extremities: normal range of motion, non-tender Skin: normal pigmentation, warm/dry Assessment/Plan Problem List: (1) Generalized weakness (2) Elevated troponin I level Assessment & Plan: ?due to renal failure? See cardiology note. (3) CHF (congestive heart failure) Assessment & Plan: See cardiology consult. (4) Renal failure Assessment & Plan: ?Dehydration?-continue IV fluids Await renal ultrasound - see nephrology consult. (5) Rhabdomyolysis Assessment & Plan: Cont IV fluids. Status: not improved VANDANA LY Sep 06, 2017 11:47
[2017-09-06 12:00] VITALS: BP 113/85
--- NOTE | 2017-09-06 13:39 | Diagnostic Imaging Report ---
Indication: Cough Technique: XRAY Chest 1v Comparison: 08/26/2017 Findings: Heart size and mediastinal contours are stable, including tortuosity and ectasia of the thoracic aorta. There is no focal airspace consolidation, pleural effusion or pneumothorax. No evidence of pulmonary edema. No acute osseous abnormality seen. Impression: No radiographic evidence of acute cardiopulmonary disease. No significant interval change from exam 3 days prior.
[2017-09-06 20:00] VITALS: BP 95/69
[2017-09-07] VITALS: BP 89/63
[2017-09-07] MEDS: D5 1/2NS 1,000 ML IV SCH ×3 (00:37→15:00)
[2017-09-07 04:00] VITALS: BP 97/67
[2017-09-07] MEDS: Heparin 5000 units/ml inj SUBQ SCH ×3 (07:02→21:02)
[2017-09-07 07:32] LABS: BASOPHILS % (AUTO) 0.5 % (0.0-2.0); HEMATOCRIT 29.7 % (42.0-52.0); HEMOGLOBIN 9.5 G/DL (14.2-18.0); LYMPHOCYTES % (AUTO) 12.7 % (20.0-45.0); MEAN CORPUSCULAR VOLUME 99 FL (80-99); MONOCYTES % (AUTO) 10.2 % (1.0-10.0); NEUTROPHILS % (AUTO) 76.6 % (45.0-75.0); PLATELET COUNT 178 K/UL (150-450); RED BLOOD COUNT 3.01 M/UL (4.70-6.10); RED CELL DISTRIBUTION WIDTH 13.6 % (11.6-14.8); WHITE BLOOD COUNT 9.9 K/UL (4.8-10.8)
[2017-09-07 08:00] VITALS: BP 94/67
[2017-09-07 08:10] LABS: ALANINE AMINOTRANSFERASE 14 U/L (12-78); ALBUMIN 2.2 G/DL (3.4-5.0); ALBUMIN/GLOBULIN RATIO 0.6 (1.0-2.7); ALKALINE PHOSPHATASE 46 U/L (46-116); ANION GAP 11 mmol/L (5-15); ASPARTATE AMINO TRANSFERASE 43 U/L (15-37); BILIRUBIN,TOTAL 0.3 MG/DL (0.2-1.0); BLOOD UREA NITROGEN 46 mg/dL (7-18); CALCIUM 7.3 MG/DL (8.5-10.1); CARBON DIOXIDE 16 MMOL/L (21-32); CHLORIDE 115 MMOL/L (98-107); CREATININE 2.5 MG/DL (0.55-1.30); PHOSPHORUS 3.2 MG/DL (2.5-4.9); POTASSIUM 4.7 MMOL/L (3.5-5.1); SODIUM 142 MMOL/L (136-145)
[2017-09-07] MEDS: Aspirin Baby 81mg ORAL SCH (08:57)
[2017-09-07] MEDS: Tamsulosin 0.4mg cap ORAL SCH ×2 (08:58→18:19)
[2017-09-07] MEDS: Metoprolol Succinate XL 25mg tab ORAL SCH (08:59)
[2017-09-07] MEDS: Docusate 100mg cap ORAL SCH ×3 (08:59→18:19)
--- NOTE | 2017-09-07 11:49 | Internal Med Progress Note ---
Subjective Date of Service: Sep 07, 2017 Physician Name Alo Ly Attending Physician Aj Lemon MD Current Medications Medications (Trade) Dose Ordered Sig/Josefina Route PRN Reason Start Time Stop Time Status Last Admin Dose Admin Acetaminophen (Tylenol) 650 mg Q4H PRN RECTAL Mild Pain (Pain Scale 1-3) 09/03/17 21:15 10/03/17 21:14 Aspirin (ASA) 81 mg DAILY ORAL 09/04/17 09:00 10/04/17 08:59 09/07/17 08:57 Bisacodyl (Dulcolax) 10 mg DAILYPRN PRN RECTAL Constipation 3rd Line Agent 09/03/17 21:15 10/03/17 21:14 Dextrose (Dextrose 50%) STAT PRN IV Hypoglycemia 09/03/17 21:15 10/03/17 21:14 Dextrose/Sodium Chloride 1,000 ml @ 75 mls/hr [id number] IV 09/06/17 11:00 10/06/17 10:59 09/07/17 00:37 Docusate Sodium (Colace) 100 mg TID ORAL 09/06/17 13:00 10/04/17 08:59 09/07/17 08:59 Heparin Sodium (Porcine) (Heparin 5000 units/ml) 5,000 units EVERY 8 HOURS SUBQ 09/03/17 22:00 10/03/17 21:59 09/07/17 07:02 Magnesium Hydroxide (Mom) 30 ml HSPRN PRN ORAL Constipation 2nd Line Agent 09/03/17 21:15 10/03/17 21:14 Metoprolol Succinate (Toprol XL) 25 mg DAILY ORAL 09/05/17 09:00 10/05/17 08:59 09/06/17 08:38 Nitroglycerin (Ntg) 0.4 mg Q5MIN X 3 DOSES PRN SL Prn Chest Pain 09/03/17 21:15 10/03/17 21:14 Ondansetron HCl (Zofran) 4 mg Q6H PRN IVP Nausea & Vomiting 09/03/17 21:15 10/03/17 21:14 Polyethylene Glycol (Miralax) 17 gm DAILYPRN PRN ORAL Constipation 1st Line agent 09/03/17 21:15 10/03/17 21:14 Tamsulosin HCl (Flomax) 0.4 mg BID ORAL 09/06/17 11:00 10/06/17 10:59 09/07/17 08:58 Allergies: Coded Allergies: No Known Allergies (Unverified , 09/03/17) ROS Limited/Unobtainable: No Constitutional: Reports: no symptoms HEENT: Reports: no symptoms Cardiovascular: Reports: no symptoms Respiratory: Reports: no symptoms Gastrointestinal/Abdominal: Reports: no symptoms Genitourinary: Reports: no symptoms Neurologic/Psychiatric: Reports: no symptoms Subjective 87 YO M admitted with gen weakness. Now rhabdomyolysis and renal failure. [place] but arousable. Cover for Int Med-Dr Lemon Objective Last Vital Signs Date Time Temp Pulse Resp B/P (MAP) Pulse Ox O2 Delivery O2 Flow Rate FiO2 09/07/17 08:00 93 09/07/17 08:00 98.2 20 94/67 100 Nasal Cannula 09/07/17 07:26 3.0 32 Laboratory Tests Test 09/07/17 06:35 White Blood Count 9.9 K/UL (4.8-10.8) # Red Blood Count 3.01 M/UL (4.70-6.10) L Hemoglobin 9.5 G/DL (14.2-18.0) L Hematocrit 29.7 % (42.0-52.0) L Mean Corpuscular Volume 99 FL (80-99) Mean Corpuscular Hemoglobin 31.7 PG (27.0-31.0) H Mean Corpuscular Hemoglobin Concent 32.1 G/DL (32.0-36.0) Red Cell Distribution Width 13.6 % (11.6-14.8) Platelet Count 178 K/UL (150-450) Mean Platelet Volume 5.9 FL (6.5-10.1) L Neutrophils (%) (Auto) 76.6 % (45.0-75.0) H Lymphocytes (%) (Auto) 12.7 % (20.0-45.0) L Monocytes (%) (Auto) 10.2 % (1.0-10.0) H Eosinophils (%) (Auto) 0.0 % (0.0-3.0) Basophils (%) (Auto) 0.5 % (0.0-2.0) Sodium Level 142 MMOL/L (136-145) Potassium Level 4.7 MMOL/L (3.5-5.1) Chloride Level 115 MMOL/L (98-107) H Carbon Dioxide Level 16 MMOL/L (21-32) L Anion Gap 11 mmol/L (5-15) Blood Urea Nitrogen 46 mg/dL (7-18) H Creatinine 2.5 MG/DL (0.55-1.30) H Estimat Glomerular Filtration Rate mL/min (>60) Glucose Level 151 MG/DL (74-106) H Calcium Level 7.3 MG/DL (8.5-10.1) L Phosphorus Level 3.2 MG/DL (2.5-4.9) Magnesium Level 1.9 MG/DL (1.8-2.4) Total Bilirubin 0.3 MG/DL (0.2-1.0) Aspartate Amino Transf (AST/SGOT) 43 U/L (15-37) H Alanine Aminotransferase (ALT/SGPT) 14 U/L (12-78) Alkaline Phosphatase 46 U/L (46-116) C-Reactive Protein, Quantitative 4.3 mg/dL (0.00-0.90) H Pro-B-Type Natriuretic Peptide 1348 pg/mL (0-125) H Total Protein 5.6 G/DL (6.4-8.2) L Albumin 2.2 G/DL (3.4-5.0) L Globulin 3.4 g/dL Albumin/Globulin Ratio 0.6 (1.0-2.7) L Intake and Output 09/06/17 09/07/17 19:00 07:00 Intake Total 240 ml 1200 ml Balance 240 ml 1200 ml Intake Oral 240 ml IV Total 0 ml 1200 ml # Voids 2 # Bowel Movements 1 Objective General Appearance: WD/WN, no apparent distress, alert EENT: PERRL/EOMI, normal ENT inspection, TMs normal Neck: non-tender, normal alignment, supple, normal inspection Cardiovascular: normal peripheral pulses, normal rate, regular rhythm, no gallop/murmur, no JVD Respiratory/Chest: chest wall non-tender, lungs clear, normal breath sounds, no respiratory distress, no accessory muscle use Abdomen: normal bowel sounds, non tender, soft, no organomegaly, no mass Extremities: normal range of motion, non-tender Skin: normal pigmentation, warm/dry Assessment/Plan Problem List: (1) Generalized weakness (2) Elevated troponin I level Assessment & Plan: ?due to renal failure? See cardiology note. (3) CHF (congestive heart failure) Assessment & Plan: See cardiology consult. (4) Renal failure Assessment & Plan: ?Dehydration?-continue IV fluids Await renal ultrasound - see nephrology consult. (5) Rhabdomyolysis Assessment & Plan: Cont IV fluids. Status: not improved ALO LY Sep 07, 2017 11:49
[2017-09-07 12:00] VITALS: BP 94/68
--- NOTE | 2017-09-07 12:05 | Diagnostic Imaging Report ---
Indication: Reason For Exam: PAIN Technique: 3 views of the right shoulder Comparison: none Findings: No acute fractures. No dislocations. Small ossific densities in the acromioclavicular joint may represent old injury or be developmental in nature. Impression: No acute process
--- NOTE | 2017-09-07 12:32 | Cardiac Electrophysiology PN ---
Assessment/Plan Assessment/Plan 1. Elevated troponin, likely due to renal failure.The levels are low and flat at 0.04 and 0.07 and 0.08. No chest pain. 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 Echocardiogram showed ejection fraction of 60% to 65% and no wall motion abnormality. Continue aspirin and Toprol XL 25 daily. 2. Short run of SVT. Continue Betablocker. 3. Elevated CK of 1336, could be the cause of the patient's renal failure with rhabdomyolysis. 4. Renal failure. Cr 2.0 5. SNIF placement pending DW RN Subjective Subjective Feeling weak. No chest pain or SOB. Not eating well. Objective Last 24 Hour Vital Signs Date Time Temp Pulse Resp B/P (MAP) Pulse Ox O2 Delivery O2 Flow Rate FiO2 09/07/17 08:00 93 09/07/17 08:00 98.2 91 20 94/67 100 Nasal Cannula 09/07/17 07:26 Nasal Cannula 3.0 32 09/07/17 07:26 91 Nasal Cannula 3.0 36 09/07/17 04:00 97.9 87 20 97/67 100 Nasal Cannula 09/07/17 04:00 87 09/07/17 00:00 98.6 88 24 89/63 95 Nasal Cannula 09/07/17 00:00 86 09/06/17 20:05 81 09/06/17 20:00 98.2 81 36 95/69 88 Room Air 09/06/17 16:00 78 Intake and Output 09/06/17 09/07/17 19:00 07:00 Intake Total 240 ml 1200 ml Balance 240 ml 1200 ml Intake Oral 240 ml IV Total 0 ml 1200 ml # Voids 2 # Bowel Movements 1 Laboratory Tests Test 09/07/17 06:35 White Blood Count 9.9 K/UL (4.8-10.8) # Red Blood Count 3.01 M/UL (4.70-6.10) L Hemoglobin 9.5 G/DL (14.2-18.0) L Hematocrit 29.7 % (42.0-52.0) L Mean Corpuscular Volume 99 FL (80-99) Mean Corpuscular Hemoglobin 31.7 PG (27.0-31.0) H Mean Corpuscular Hemoglobin Concent 32.1 G/DL (32.0-36.0) Red Cell Distribution Width 13.6 % (11.6-14.8) Platelet Count 178 K/UL (150-450) Mean Platelet Volume 5.9 FL (6.5-10.1) L Neutrophils (%) (Auto) 76.6 % (45.0-75.0) H Lymphocytes (%) (Auto) 12.7 % (20.0-45.0) L Monocytes (%) (Auto) 10.2 % (1.0-10.0) H Eosinophils (%) (Auto) 0.0 % (0.0-3.0) Basophils (%) (Auto) 0.5 % (0.0-2.0) Sodium Level 142 MMOL/L (136-145) Potassium Level 4.7 MMOL/L (3.5-5.1) Chloride Level 115 MMOL/L (98-107) H Carbon Dioxide Level 16 MMOL/L (21-32) L Anion Gap 11 mmol/L (5-15) Blood Urea Nitrogen 46 mg/dL (7-18) H Creatinine 2.5 MG/DL (0.55-1.30) H Estimat Glomerular Filtration Rate mL/min (>60) Glucose Level 151 MG/DL (74-106) H Calcium Level 7.3 MG/DL (8.5-10.1) L Phosphorus Level 3.2 MG/DL (2.5-4.9) Magnesium Level 1.9 MG/DL (1.8-2.4) Total Bilirubin 0.3 MG/DL (0.2-1.0) Aspartate Amino Transf (AST/SGOT) 43 U/L (15-37) H Alanine Aminotransferase (ALT/SGPT) 14 U/L (12-78) Alkaline Phosphatase 46 U/L (46-116) C-Reactive Protein, Quantitative 4.3 mg/dL (0.00-0.90) H Pro-B-Type Natriuretic Peptide 1348 pg/mL (0-125) H Total Protein 5.6 G/DL (6.4-8.2) L Albumin 2.2 G/DL (3.4-5.0) L Globulin 3.4 g/dL Albumin/Globulin Ratio 0.6 (1.0-2.7) L Objective HEAD AND NECK: No JVD . LUNGS: Clear. CARDIOVASCULAR: Regular S1 and S2 with no gallop or murmur. ABDOMEN: Soft. EXTREMITIES: No pitting edema. ROSAS CABEZAS Sep 07, 2017 12:32
[2017-09-07] MEDS ORDERED: Nitroglycerin Subl 0.4mg tab SL PRN (14:30)
--- NOTE | 2017-09-07 15:17 | Nephrology Progress Note ---
Assessment/Plan Problem List: (1) Renal failure (2) Rhabdomyolysis (3) CHF (congestive heart failure) (4) Failure to thrive Assessment Status: renal failure- ? acute ? Rhabdo ?Underlying CKD , Proteinuria Elevated troponin : Echo ejection fraction of 60% to 65% and no wall motion abnormality. Anemia Plan Plan: Hydrate- Monitor CPK avoid Nephrotoxics Monitor renal parameters keep BP in check start Flomax per orders Subjective ROS Limited/Unobtainable: No Constitutional: Reports: malaise, other - uncoaporative Objective Objective Last 24 Hour Vital Signs Date Time Temp Pulse Resp B/P (MAP) Pulse Ox O2 Delivery O2 Flow Rate FiO2 09/07/17 12:00 98.1 88 22 94/68 100 Nasal Cannula 09/07/17 08:00 93 09/07/17 08:00 98.2 91 20 94/67 100 Nasal Cannula 09/07/17 07:26 Nasal Cannula 3.0 32 09/07/17 07:26 91 Nasal Cannula 3.0 36 09/07/17 04:00 97.9 87 20 97/67 100 Nasal Cannula 09/07/17 04:00 87 09/07/17 00:00 98.6 88 24 89/63 95 Nasal Cannula 09/07/17 00:00 86 09/06/17 20:05 81 09/06/17 20:00 98.2 81 36 95/69 88 Room Air 09/06/17 16:00 78 Intake and Output 09/06/17 09/07/17 19:00 07:00 Intake Total 240 ml 1200 ml Balance 240 ml 1200 ml Intake Oral 240 ml IV Total 0 ml 1200 ml # Voids 2 # Bowel Movements 1 Laboratory Tests 09/07/17 06:35: White Blood Count 9.9#, Red Blood Count 3.01L, Hemoglobin 9.5L, Hematocrit 29.7L , Mean Corpuscular Volume 99, Mean Corpuscular Hemoglobin 31.7H, Mean Corpuscular Hemoglobin Concent 32.1, Red Cell Distribution Width 13.6, Platelet Count 178, Mean Platelet Volume 5.9L, Neutrophils (%) (Auto) 76.6H, Lymphocytes (%) (Auto) 12.7L, Monocytes (%) (Auto) 10.2H, Eosinophils (%) (Auto) 0.0, Basophils (%) (Auto) 0.5, Sodium Level 142, Potassium Level 4.7, Chloride Level 115H, Carbon Dioxide Level 16L, Anion Gap 11, Blood Urea Nitrogen 46H, Creatinine 2.5H, Estimat Glomerular Filtration Rate , Glucose Level 151H, Calcium Level 7.3L, Phosphorus Level 3.2, Magnesium Level 1.9, Total Bilirubin 0.3, Aspartate Amino Transf (AST/SGOT) 43H, Alanine Aminotransferase (ALT/SGPT) 14, Alkaline Phosphatase 46, Total Creatine Kinase [Pending], C-Reactive Protein , Quantitative 4.3H, Pro-B-Type Natriuretic Peptide 1348H, Total Protein 5.6L, Albumin 2.2L, Globulin 3.4, Albumin/Globulin Ratio 0.6L Height (Feet): 6 Height (Inches): 0.00 Weight (Pounds): 180 General Appearance: no apparent distress, lethargic Cardiovascular: tachycardia Respiratory/Chest: decreased breath sounds Abdomen: soft CORINNE WIGGINS Sep 07, 2017 15:17
[2017-09-07 15:29] LABS: CREATINE KINASE 594 U/L (26-308)
[2017-09-07 16:00] VITALS: BP 94/70
[2017-09-07] MEDS ORDERED: Albumin Human 5% 500ml IV ONE (16:00)
[2017-09-07] MEDS ORDERED: Acetaminophen 650 MG SUPP RECTAL PRN (17:15)
[2017-09-07 20:00] VITALS: BP 111/62
[2017-09-07] MEDS ORDERED: Miralax 17gm pkt ORAL PRN (21:15)
[2017-09-07] MEDS ORDERED: Milk of Magnesia 30ml Ud ORAL PRN (21:15)
[2017-09-08] VITALS: BP 108/68
[2017-09-08] MEDS: D5 1/2NS 1,000 ML IV SCH ×2 (03:45→18:46)
[2017-09-08 04:00] VITALS: BP 102/67
[2017-09-08] MEDS: Heparin 5000 units/ml inj SUBQ SCH ×3 (06:08→21:22)
[2017-09-08 07:33] LABS: HEMATOCRIT 23.1 % (42.0-52.0); HEMOGLOBIN 7.3 G/DL (14.2-18.0); MEAN CORPUSCULAR VOLUME 97 FL (80-99); PLATELET COUNT 216 K/UL (150-450); RED BLOOD COUNT 2.38 M/UL (4.70-6.10); RED CELL DISTRIBUTION WIDTH 13.3 % (11.6-14.8); WHITE BLOOD COUNT 9.7 K/UL (4.8-10.8)
[2017-09-08 07:45] LABS: ALANINE AMINOTRANSFERASE 12 U/L (12-78); ALBUMIN 2.6 G/DL (3.4-5.0); ALBUMIN/GLOBULIN RATIO 0.9 (1.0-2.7); ALKALINE PHOSPHATASE 40 U/L (46-116); ANION GAP 12 mmol/L (5-15); ASPARTATE AMINO TRANSFERASE 36 U/L (15-37); BILIRUBIN,TOTAL 0.3 MG/DL (0.2-1.0); BLOOD UREA NITROGEN 54 mg/dL (7-18); CALCIUM 7.3 MG/DL (8.5-10.1); CARBON DIOXIDE 18 MMOL/L (21-32); CHLORIDE 115 MMOL/L (98-107); CREATINE KINASE 492 U/L (26-308); CREATININE 2.7 MG/DL (0.55-1.30); POTASSIUM 4.4 MMOL/L (3.5-5.1); SODIUM 145 MMOL/L (136-145)
[2017-09-08 07:46] LABS: ALANINE AMINOTRANSFERASE 14 U/L (12-78); ALBUMIN 2.6 G/DL (3.4-5.0); ALKALINE PHOSPHATASE 41 U/L (46-116); ASPARTATE AMINO TRANSFERASE 37 U/L (15-37); BILIRUBIN,DIRECT 0.2 MG/DL (0.0-0.3); BILIRUBIN,TOTAL 0.4 MG/DL (0.2-1.0); PHOSPHORUS 2.7 MG/DL (2.5-4.9)
[2017-09-08 08:00] VITALS: BP 111/71
[2017-09-08] MEDS: Metoprolol Succinate XL 25mg tab ORAL SCH (09:00)
[2017-09-08] MEDS: Aspirin Baby 81mg ORAL SCH (09:33)
[2017-09-08] MEDS: Docusate 100mg cap ORAL SCH ×3 (09:33→18:00)
[2017-09-08] MEDS: Tamsulosin 0.4mg cap ORAL SCH ×2 (09:33→18:00)
[2017-09-08 12:00] VITALS: BP 115/70
--- NOTE | 2017-09-08 13:16 | Cardiac Electrophysiology PN ---
Assessment/Plan Assessment/Plan 1. Elevated troponin, likely due to renal failure.The levels are low and flat at 0.04 , 0.07 and 0.08. No chest pain. EKG shows sinus rhythm with left anterior fascicular block with no acute ST-T wave abnormalities with occasional premature ventricular contractions. Echocardiogram showed ejection fraction of 60% to 65% and no wall motion abnormality. Continue aspirin and Toprol XL 25 daily. 2. Short run of SVT. Continue Toprol 3. Elevated CK of 1336, could be the cause of the patient's renal failure with rhabdomyolysis. 4. Renal failure. Cr 2.7 5. SNIF placement pending 6. Dysphagia. May need PEG 7. Anemia with Hb dr0p from 13 to 12>11>10>9>7 Stool OB pending. Follow up by Gi DW Dr Skinner Subjective Subjective Not eating well.Had Calorie count today. Objective Last 24 Hour Vital Signs Date Time Temp Pulse Resp B/P (MAP) Pulse Ox O2 Delivery O2 Flow Rate FiO2 09/08/17 12:00 97.6 81 18 115/70 97 09/08/17 09:00 60 102/67 09/08/17 08:00 97.7 84 20 111/71 95 09/08/17 04:00 98.1 60 20 102/67 95 Room Air 09/08/17 00:00 97.0 96 20 108/68 96 Room Air 09/07/17 20:00 98.4 95 20 111/62 95 09/07/17 19:30 93 Nasal Cannula 3.0 36 09/07/17 19:30 Nasal Cannula 3.0 32 09/07/17 16:00 97.7 88 22 94/70 93 Nasal Cannula Intake and Output 09/07/17 09/08/17 19:00 07:00 Intake Total 495 ml 990 ml Balance 495 ml 990 ml Intake Oral 120 ml 240 ml IV Total 375 ml 750 ml # Voids 1 3 Laboratory Tests Test 09/08/17 06:10 White Blood Count 9.7 K/UL (4.8-10.8) Red Blood Count 2.38 M/UL (4.70-6.10) L Hemoglobin 7.3 G/DL (14.2-18.0) L Hematocrit 23.1 % (42.0-52.0) L Mean Corpuscular Volume 97 FL (80-99) Mean Corpuscular Hemoglobin 30.8 PG (27.0-31.0) Mean Corpuscular Hemoglobin Concent 31.7 G/DL (32.0-36.0) L Red Cell Distribution Width 13.3 % (11.6-14.8) Platelet Count 216 K/UL (150-450) Mean Platelet Volume 6.0 FL (6.5-10.1) L Neutrophils (%) (Auto) % (45.0-75.0) Lymphocytes (%) (Auto) % (20.0-45.0) Monocytes (%) (Auto) % (1.0-10.0) Eosinophils (%) (Auto) % (0.0-3.0) Basophils (%) (Auto) % (0.0-2.0) Differential Total Cells Counted 100 Neutrophils % (Manual) 75 % (45-75) Lymphocytes % (Manual) 11 % (20-45) L Monocytes % (Manual) 12 % (1-10) H Eosinophils % (Manual) 0 % (0-3) Basophils % (Manual) 0 % (0-2) Band Neutrophils 2 % (0-8) Platelet Estimate Adequate Platelet Morphology Normal Hypochromasia 1+ Sodium Level 145 MMOL/L (136-145) Potassium Level 4.4 MMOL/L (3.5-5.1) Chloride Level 115 MMOL/L (98-107) H Carbon Dioxide Level 18 MMOL/L (21-32) L Anion Gap 12 mmol/L (5-15) Blood Urea Nitrogen 54 mg/dL (7-18) H Creatinine 2.7 MG/DL (0.55-1.30) H Estimat Glomerular Filtration Rate mL/min (>60) Glucose Level 127 MG/DL (74-106) H Uric Acid 8.1 MG/DL (2.6-7.2) H Calcium Level 7.3 MG/DL (8.5-10.1) L Phosphorus Level 2.7 MG/DL (2.5-4.9) Magnesium Level 2.0 MG/DL (1.8-2.4) Total Bilirubin 0.4 MG/DL (0.2-1.0) Direct Bilirubin 0.2 MG/DL (0.0-0.3) Aspartate Amino Transf (AST/SGOT) 37 U/L (15-37) Alanine Aminotransferase (ALT/SGPT) 14 U/L (12-78) Alkaline Phosphatase 41 U/L (46-116) L Total Creatine Kinase 492 U/L (26-308) H Total Protein 5.6 G/DL (6.4-8.2) L Albumin 2.6 G/DL (3.4-5.0) L Globulin 3.0 g/dL Albumin/Globulin Ratio 0.9 (1.0-2.7) L Objective HEAD AND NECK: No JVD. LUNGS: Clear. CARDIOVASCULAR: Regular S1 and S2 with no gallop or murmur. ABDOMEN: Soft. EXTREMITIES: No pitting edema. ROSAS CABEZAS Sep 08, 2017 13:16
[2017-09-08 16:00] VITALS: BP 120/65
--- NOTE | 2017-09-08 16:02 | Nephrology Progress Note ---
Assessment/Plan Problem List: (1) Renal failure (2) Rhabdomyolysis (3) CHF (congestive heart failure) (4) Failure to thrive Assessment Status: H&H lower renal failure- ? acute ? Rhabdo Cr rising ?Underlying CKD , Proteinuria Elevated troponin : Echo ejection fraction of 60% to 65% and no wall motion abnormality. Anemia Plan Plan: brown transfuse Hydrate- Monitor CPK avoid Nephrotoxics Monitor renal parameters keep BP in check start Flomax per orders Subjective ROS Limited/Unobtainable: No Constitutional: Reports: malaise, weakness Objective Objective Last 24 Hour Vital Signs Date Time Temp Pulse Resp B/P (MAP) Pulse Ox O2 Delivery O2 Flow Rate FiO2 09/08/17 13:58 96 Room Air 21 09/08/17 13:58 Room Air 21 09/08/17 12:00 97.6 81 18 115/70 97 09/08/17 09:00 60 102/67 09/08/17 08:00 97.7 84 20 111/71 95 09/08/17 04:00 98.1 60 20 102/67 95 Room Air 09/08/17 00:00 97.0 96 20 108/68 96 Room Air 09/07/17 20:00 98.4 95 20 111/62 95 09/07/17 19:30 93 Nasal Cannula 3.0 36 09/07/17 19:30 Nasal Cannula 3.0 32 09/07/17 16:00 97.7 88 22 94/70 93 Nasal Cannula Intake and Output 09/07/17 09/08/17 18:59 06:59 Intake Total 420 ml 990 ml Balance 420 ml 990 ml Intake Oral 120 ml 240 ml IV Total 300 ml 750 ml # Voids 1 3 Laboratory Tests 09/08/17 06:10: White Blood Count 9.7, Red Blood Count 2.38L, Hemoglobin 7.3L, Hematocrit 23.1L , Mean Corpuscular Volume 97, Mean Corpuscular Hemoglobin 30.8, Mean Corpuscular Hemoglobin Concent 31.7L, Red Cell Distribution Width 13.3, Platelet Count 216, Mean Platelet Volume 6.0L, Neutrophils (%) (Auto) , Lymphocytes (%) (Auto) , Monocytes (%) (Auto) , Eosinophils (%) (Auto) , Basophils (%) (Auto) , Differential Total Cells Counted 100, Neutrophils % ( Manual) 75, Lymphocytes % (Manual) 11L, Monocytes % (Manual) 12H, Eosinophils % (Manual) 0, Basophils % (Manual) 0, Band Neutrophils 2, Platelet Estimate Adequate, Platelet Morphology Normal, Hypochromasia 1+, Sodium Level 145, Potassium Level 4.4, Chloride Level 115H, Carbon Dioxide Level 18L, Anion Gap 12 , Blood Urea Nitrogen 54H, Creatinine 2.7H, Estimat Glomerular Filtration Rate , Glucose Level 127H, Uric Acid 8.1H, Calcium Level 7.3L, Phosphorus Level 2.7, Magnesium Level 2.0, Total Bilirubin 0.4, Direct Bilirubin 0.2, Aspartate Amino Transf (AST/SGOT) 37, Alanine Aminotransferase (ALT/SGPT) 14, Alkaline Phosphatase 41L, Total Creatine Kinase 492H, Total Protein 5.6L, Albumin 2.6L, Globulin 3.0, Albumin/Globulin Ratio 0.9L Height (Feet): 6 Height (Inches): 0.00 Weight (Pounds): 180 General Appearance: no apparent distress, lethargic Cardiovascular: normal rate Respiratory/Chest: decreased breath sounds Abdomen: soft Objective no other changes CORINNE WIGGINS Sep 08, 2017 16:02
[2017-09-08 16:53] LABS: FERRITIN 545 NG/ML (8-388)
[2017-09-08 17:03] LABS: % IRON SATURATION 8 % (15-50); IRON 10 ug/dL (50-175); TOTAL IRON BINDING CAPACITY 125 ug/dL (250-450)
--- NOTE | 2017-09-08 17:29 | Pulmonology Progress Note ---
Assessment/Plan Problems: (1) Severe malnutrition (2) Anemia (3) Elevated troponin I level (4) Renal failure (5) CHF (congestive heart failure) (6) Generalized weakness Assessment/Plan improving all noted f/u electrolytes dc planning soon. Subjective ROS Limited/Unobtainable: No Allergies: Coded Allergies: No Known Allergies (Unverified , 09/03/17) Objective Last 24 Hour Vital Signs Date Time Temp Pulse Resp B/P (MAP) Pulse Ox O2 Delivery O2 Flow Rate FiO2 09/08/17 16:00 98.0 79 18 120/65 09/08/17 13:58 96 Room Air 21 09/08/17 13:58 Room Air 21 09/08/17 12:00 97.6 81 18 115/70 97 09/08/17 09:00 60 102/67 09/08/17 08:00 97.7 84 20 111/71 95 09/08/17 04:00 98.1 60 20 102/67 95 Room Air 09/08/17 00:00 97.0 96 20 108/68 96 Room Air 09/07/17 20:00 98.4 95 20 111/62 95 09/07/17 19:30 93 Nasal Cannula 3.0 36 09/07/17 19:30 Nasal Cannula 3.0 32 Intake and Output 09/07/17 09/08/17 19:00 07:00 Intake Total 495 ml 990 ml Balance 495 ml 990 ml Intake Oral 120 ml 240 ml IV Total 375 ml 750 ml # Voids 1 3 Objective General Appearance: WD/WN HEENT: normocephalic, atraumatic Respiratory/Chest: chest wall non-tender, lungs clear Abdomen: normal bowel sounds, soft, non tender Genitourinary: normal external genitalia Skin: no lesions Laboratory Tests 09/08/17 06:10: White Blood Count 9.7, Red Blood Count 2.38L, Hemoglobin 7.3L, Hematocrit 23.1L , Mean Corpuscular Volume 97, Mean Corpuscular Hemoglobin 30.8, Mean Corpuscular Hemoglobin Concent 31.7L, Red Cell Distribution Width 13.3, Platelet Count 216, Mean Platelet Volume 6.0L, Neutrophils (%) (Auto) , Lymphocytes (%) (Auto) , Monocytes (%) (Auto) , Eosinophils (%) (Auto) , Basophils (%) (Auto) , Differential Total Cells Counted 100, Neutrophils % ( Manual) 75, Lymphocytes % (Manual) 11L, Monocytes % (Manual) 12H, Eosinophils % (Manual) 0, Basophils % (Manual) 0, Band Neutrophils 2, Platelet Estimate Adequate, Platelet Morphology Normal, Hypochromasia 1+, Sodium Level 145, Potassium Level 4.4, Chloride Level 115H, Carbon Dioxide Level 18L, Anion Gap 12 , Blood Urea Nitrogen 54H, Creatinine 2.7H, Estimat Glomerular Filtration Rate , Glucose Level 127H, Uric Acid 8.1H, Calcium Level 7.3L, Phosphorus Level 2.7, Magnesium Level 2.0, Iron Level 10L, Total Iron Binding Capacity 125L, Percent Iron Saturation 8L, Unsaturated Iron Binding 115, Ferritin 545H, Total Bilirubin 0.4, Direct Bilirubin 0.2, Aspartate Amino Transf (AST/SGOT) 37, Alanine Aminotransferase (ALT/SGPT) 14, Alkaline Phosphatase 41L, Total Creatine Kinase 492H, Total Protein 5.6L, Albumin 2.6L, Globulin 3.0, Albumin/ Globulin Ratio 0.9L, Folate 3.9L Current Medications Medications (Trade) Dose Ordered Sig/Josefina Route PRN Reason Start Time Stop Time Status Last Admin Dose Admin Acetaminophen (Tylenol) 650 mg Q4H PRN RECTAL Mild Pain (Pain Scale 1-3) 09/07/17 17:15 10/03/17 21:14 Aspirin (ASA) 81 mg DAILY ORAL 09/08/17 09:00 10/04/17 08:59 09/08/17 09:33 Bisacodyl (Dulcolax) 10 mg DAILYPRN PRN RECTAL Constipation 3rd Line Agent 09/07/17 21:15 10/03/17 21:14 Dextrose (Dextrose 50%) STAT PRN IV Hypoglycemia 09/07/17 21:15 10/03/17 21:14 Dextrose/Sodium Chloride 1,000 ml @ 75 mls/hr [id number] IV 09/07/17 15:00 10/06/17 14:59 09/08/17 03:45 Docusate Sodium (Colace) 100 mg TID ORAL 09/07/17 18:00 10/04/17 08:59 09/08/17 14:51 Heparin Sodium (Porcine) (Heparin 5000 units/ml) 5,000 units EVERY 8 HOURS SUBQ 09/07/17 22:00 10/03/17 21:59 09/08/17 14:52 Metoprolol Succinate (Toprol XL) 25 mg DAILY ORAL 09/08/17 09:00 10/05/17 08:59 Nitroglycerin (Ntg) 0.4 mg Q5MIN X 3 DOSES PRN SL Prn Chest Pain 09/07/17 14:30 10/03/17 21:14 Ondansetron HCl (Zofran) 4 mg Q6H PRN IVP Nausea & Vomiting 09/07/17 15:15 10/03/17 21:14 Polyethylene Glycol (Miralax) 17 gm DAILYPRN PRN ORAL Constipation 1st Line agent 09/07/17 21:15 10/03/17 21:14 Tamsulosin HCl (Flomax) 0.4 mg BID ORAL 09/07/17 18:00 10/06/17 10:59 09/08/17 09:33 DIPIKA FAIRCHILD Sep 08, 2017 17:29
--- NOTE | 2017-09-08 18:04 | Internal Med Progress Note ---
Subjective Date of Service: Sep 08, 2017 Physician Name Vandana Ly Attending Physician Aj Lemon MD Current Medications Medications (Trade) Dose Ordered Sig/Josefina Route PRN Reason Start Time Stop Time Status Last Admin Dose Admin Acetaminophen (Tylenol) 650 mg Q4H PRN RECTAL Mild Pain (Pain Scale 1-3) 09/07/17 17:15 10/03/17 21:14 Aspirin (ASA) 81 mg DAILY ORAL 09/08/17 09:00 10/04/17 08:59 09/08/17 09:33 Bisacodyl (Dulcolax) 10 mg DAILYPRN PRN RECTAL Constipation 3rd Line Agent 09/07/17 21:15 10/03/17 21:14 Dextrose (Dextrose 50%) STAT PRN IV Hypoglycemia 09/07/17 21:15 10/03/17 21:14 Dextrose/Sodium Chloride 1,000 ml @ 75 mls/hr [id number] IV 09/07/17 15:00 10/06/17 14:59 09/08/17 03:45 Docusate Sodium (Colace) 100 mg TID ORAL 09/07/17 18:00 10/04/17 08:59 09/08/17 14:51 Heparin Sodium (Porcine) (Heparin 5000 units/ml) 5,000 units EVERY 8 HOURS SUBQ 09/07/17 22:00 10/03/17 21:59 09/08/17 14:52 Metoprolol Succinate (Toprol XL) 25 mg DAILY ORAL 09/08/17 09:00 10/05/17 08:59 Nitroglycerin (Ntg) 0.4 mg Q5MIN X 3 DOSES PRN SL Prn Chest Pain 09/07/17 14:30 10/03/17 21:14 Ondansetron HCl (Zofran) 4 mg Q6H PRN IVP Nausea & Vomiting 09/07/17 15:15 10/03/17 21:14 Polyethylene Glycol (Miralax) 17 gm DAILYPRN PRN ORAL Constipation 1st Line agent 09/07/17 21:15 10/03/17 21:14 Tamsulosin HCl (Flomax) 0.4 mg BID ORAL 09/07/17 18:00 10/06/17 10:59 09/08/17 09:33 Allergies: Coded Allergies: No Known Allergies (Unverified , 09/03/17) ROS Limited/Unobtainable: No Constitutional: Reports: no symptoms HEENT: Reports: no symptoms Cardiovascular: Reports: no symptoms Respiratory: Reports: no symptoms Gastrointestinal/Abdominal: Reports: no symptoms Genitourinary: Reports: no symptoms Neurologic/Psychiatric: Reports: no symptoms Subjective 87 YO M admitted with gen weakness. Now rhabdomyolysis and renal failure. Drowsey but arousable. Cover for [facility]-Dr Lemon Objective Last Vital Signs Date Time Temp Pulse Resp B/P (MAP) Pulse Ox O2 Delivery O2 Flow Rate FiO2 09/08/17 16:00 98.0 79 18 120/65 09/08/17 13:58 96 Room Air 21 09/07/17 19:30 3.0 Laboratory Tests Test 09/08/17 06:10 White Blood Count 9.7 K/UL (4.8-10.8) Red Blood Count 2.38 M/UL (4.70-6.10) L Hemoglobin 7.3 G/DL (14.2-18.0) L Hematocrit 23.1 % (42.0-52.0) L Mean Corpuscular Volume 97 FL (80-99) Mean Corpuscular Hemoglobin 30.8 PG (27.0-31.0) Mean Corpuscular Hemoglobin Concent 31.7 G/DL (32.0-36.0) L Red Cell Distribution Width 13.3 % (11.6-14.8) Platelet Count 216 K/UL (150-450) Mean Platelet Volume 6.0 FL (6.5-10.1) L Neutrophils (%) (Auto) % (45.0-75.0) Lymphocytes (%) (Auto) % (20.0-45.0) Monocytes (%) (Auto) % (1.0-10.0) Eosinophils (%) (Auto) % (0.0-3.0) Basophils (%) (Auto) % (0.0-2.0) Differential Total Cells Counted 100 Neutrophils % (Manual) 75 % (45-75) Lymphocytes % (Manual) 11 % (20-45) L Monocytes % (Manual) 12 % (1-10) H Eosinophils % (Manual) 0 % (0-3) Basophils % (Manual) 0 % (0-2) Band Neutrophils 2 % (0-8) Platelet Estimate Adequate Platelet Morphology Normal Hypochromasia 1+ Sodium Level 145 MMOL/L (136-145) Potassium Level 4.4 MMOL/L (3.5-5.1) Chloride Level 115 MMOL/L (98-107) H Carbon Dioxide Level 18 MMOL/L (21-32) L Anion Gap 12 mmol/L (5-15) Blood Urea Nitrogen 54 mg/dL (7-18) H Creatinine 2.7 MG/DL (0.55-1.30) H Estimat Glomerular Filtration Rate mL/min (>60) Glucose Level 127 MG/DL (74-106) H Uric Acid 8.1 MG/DL (2.6-7.2) H Calcium Level 7.3 MG/DL (8.5-10.1) L Phosphorus Level 2.7 MG/DL (2.5-4.9) Magnesium Level 2.0 MG/DL (1.8-2.4) Iron Level 10 ug/dL (50-175) L Total Iron Binding Capacity 125 ug/dL (250-450) L Percent Iron Saturation 8 % (15-50) L Unsaturated Iron Binding 115 ug/dL (112-346) Ferritin 545 NG/ML (8-388) H Total Bilirubin 0.4 MG/DL (0.2-1.0) Direct Bilirubin 0.2 MG/DL (0.0-0.3) Aspartate Amino Transf (AST/SGOT) 37 U/L (15-37) Alanine Aminotransferase (ALT/SGPT) 14 U/L (12-78) Alkaline Phosphatase 41 U/L (46-116) L Total Creatine Kinase 492 U/L (26-308) H Total Protein 5.6 G/DL (6.4-8.2) L Albumin 2.6 G/DL (3.4-5.0) L Globulin 3.0 g/dL Albumin/Globulin Ratio 0.9 (1.0-2.7) L Folate 3.9 NG/ML (8.6-58.9) L Intake and Output 09/07/17 09/08/17 19:00 07:00 Intake Total 495 ml 990 ml Balance 495 ml 990 ml Intake Oral 120 ml 240 ml IV Total 375 ml 750 ml # Voids 1 3 Objective General Appearance: WD/WN, no apparent distress, alert EENT: PERRL/EOMI, normal ENT inspection, TMs normal Neck: non-tender, normal alignment, supple, normal inspection Cardiovascular: normal peripheral pulses, normal rate, regular rhythm, no gallop/murmur, no JVD Respiratory/Chest: chest wall non-tender, lungs clear, normal breath sounds, no respiratory distress, no accessory muscle use Abdomen: normal bowel sounds, non tender, soft, no organomegaly, no mass Extremities: normal range of motion, non-tender Skin: normal pigmentation, warm/dry Assessment/Plan Problem List: (1) Generalized weakness (2) Elevated troponin I level Assessment & Plan: ?due to renal failure? See cardiology note. (3) CHF (congestive heart failure) Assessment & Plan: See cardiology consult. (4) Renal failure Assessment & Plan: ?Dehydration?-continue IV fluids Await renal ultrasound - see nephrology consult. (5) Rhabdomyolysis Assessment & Plan: Cont IV fluids. (6) Anemia Assessment & Plan: Iron studies pending. GI consult VANDANA LY Sep 08, 2017 18:04
[2017-09-08 20:00] VITALS: BP 121/59
[2017-09-08 21:08] LABS: HEMATOCRIT 23.2 % (42.0-52.0); HEMOGLOBIN 7.6 G/DL (14.2-18.0); MEAN CORPUSCULAR VOLUME 96 FL (80-99); PLATELET COUNT 223 K/UL (150-450); RED BLOOD COUNT 2.42 M/UL (4.70-6.10); RED CELL DISTRIBUTION WIDTH 14.1 % (11.6-14.8); WHITE BLOOD COUNT 9.1 K/UL (4.8-10.8)
[2017-09-09] VITALS: BP 120/75
[2017-09-09 04:00] VITALS: BP 122/75
[2017-09-09] MEDS: Heparin 5000 units/ml inj SUBQ SCH (05:41)
[2017-09-09] MEDS: D5 1/2NS 1,000 ML IV SCH (06:39)
[2017-09-09 07:33] LABS: BASOPHILS % (AUTO) 0.4 % (0.0-2.0); EOSINOPHILS % (AUTO) 0.2 % (0.0-3.0); HEMATOCRIT 26.3 % (42.0-52.0); HEMOGLOBIN 8.5 G/DL (14.2-18.0); LYMPHOCYTES % (AUTO) 13.8 % (20.0-45.0); MEAN CORPUSCULAR VOLUME 95 FL (80-99); MONOCYTES % (AUTO) 10.7 % (1.0-10.0); PLATELET COUNT 259 K/UL (150-450); RED BLOOD COUNT 2.76 M/UL (4.70-6.10); RED CELL DISTRIBUTION WIDTH 14.8 % (11.6-14.8)
[2017-09-09 07:59] LABS: ALANINE AMINOTRANSFERASE 18 U/L (12-78); ALBUMIN 2.4 G/DL (3.4-5.0); ALBUMIN/GLOBULIN RATIO 0.7 (1.0-2.7); ALKALINE PHOSPHATASE 45 U/L (46-116); ANION GAP 10 mmol/L (5-15); ASPARTATE AMINO TRANSFERASE 50 U/L (15-37); BILIRUBIN,TOTAL 0.5 MG/DL (0.2-1.0); BLOOD UREA NITROGEN 51 mg/dL (7-18); CALCIUM 7.7 MG/DL (8.5-10.1); CARBON DIOXIDE 19 MMOL/L (21-32); CHLORIDE 119 MMOL/L (98-107); CREATININE 2.3 MG/DL (0.55-1.30); PHOSPHORUS 2.7 MG/DL (2.5-4.9); POTASSIUM 4.3 MMOL/L (3.5-5.1); SODIUM 148 MMOL/L (136-145)
[2017-09-09 08:26] VITALS: BP 118/84
--- NOTE | 2017-09-09 08:42 | Diagnostic Imaging Report ---
Indication: Pain, acute renal failure Technique: Grayscale and duplex images of the kidneys, retroperitoneum, and bladder were obtained. Comparison: none Findings: Right kidney measures 12.6 cm in length. Left kidney measures 11 cm in length. Both kidneys demonstrate normal echogenicity. No hydronephrosis. Centimeters kidneys demonstrate innumerable cysts, several large. The largest in the left kidney measures 8 cm diameter. Normal inferior vena cava. Bladder is normal. The prostate is enlarged, volume 82 mL Impression: Negative for hydronephrosis Innumerable bilateral renal cysts, several large Enlarged prostate.
[2017-09-09] MEDS: Docusate 100mg cap ORAL SCH ×2 (09:37→12:50)
[2017-09-09] MEDS: Tamsulosin 0.4mg cap ORAL SCH (09:37)
[2017-09-09] MEDS: Aspirin Baby 81mg ORAL SCH (09:37)
[2017-09-09] MEDS: Metoprolol Succinate XL 25mg tab ORAL SCH (09:37)
[2017-09-09 12:00] VITALS: BP 123/80
--- NOTE | 2017-09-09 12:11 | Internal Med Progress Note ---
Subjective Date of Service: Sep 09, 2017 Physician Name Alo Skinner Attending Physician Aj Lemon MD Current Medications Medications (Trade) Dose Ordered Sig/Josefina Route PRN Reason Start Time Stop Time Status Last Admin Dose Admin Acetaminophen (Tylenol) 650 mg Q4H PRN RECTAL Mild Pain (Pain Scale 1-3) 09/07/17 17:15 10/03/17 21:14 Aspirin (ASA) 81 mg DAILY ORAL 09/08/17 09:00 10/04/17 08:59 09/08/17 09:33 Bisacodyl (Dulcolax) 10 mg DAILYPRN PRN RECTAL Constipation 3rd Line Agent 09/07/17 21:15 10/03/17 21:14 Dextrose (Dextrose 50%) STAT PRN IV Hypoglycemia 09/07/17 21:15 10/03/17 21:14 Dextrose/Sodium Chloride 1,000 ml @ 75 mls/hr [id number] IV 09/07/17 15:00 10/06/17 14:59 09/09/17 06:39 Docusate Sodium (Colace) 100 mg TID ORAL 09/07/17 18:00 10/04/17 08:59 09/08/17 14:51 Heparin Sodium (Porcine) (Heparin 5000 units/ml) 5,000 units EVERY 8 HOURS SUBQ 09/07/17 22:00 10/03/17 21:59 09/08/17 21:22 Metoprolol Succinate (Toprol XL) 25 mg DAILY ORAL 09/08/17 09:00 10/05/17 08:59 Nitroglycerin (Ntg) 0.4 mg Q5MIN X 3 DOSES PRN SL Prn Chest Pain 09/07/17 14:30 10/03/17 21:14 Ondansetron HCl (Zofran) 4 mg Q6H PRN IVP Nausea & Vomiting 09/07/17 15:15 10/03/17 21:14 Polyethylene Glycol (Miralax) 17 gm DAILYPRN PRN ORAL Constipation 1st Line agent 09/07/17 21:15 10/03/17 21:14 Tamsulosin HCl (Flomax) 0.4 mg BID ORAL 09/07/17 18:00 10/06/17 10:59 09/08/17 09:33 Allergies: Coded Allergies: No Known Allergies (Unverified , 09/03/17) ROS Limited/Unobtainable: No Constitutional: Reports: no symptoms HEENT: Reports: no symptoms Cardiovascular: Reports: no symptoms Respiratory: Reports: no symptoms Gastrointestinal/Abdominal: Reports: no symptoms Genitourinary: Reports: no symptoms Neurologic/Psychiatric: Reports: no symptoms Subjective 87 YO M admitted with gen weakness. Now rhabdomyolysis and renal failure. [place] but arousable. Cover for [facility]-Dr Lemon. Await transfer to [facility] nursing fac Objective Last Vital Signs Date Time Temp Pulse Resp B/P (MAP) Pulse Ox O2 Delivery O2 Flow Rate FiO2 09/09/17 10:56 97 Room Air 21 09/09/17 09:37 76 118/84 09/09/17 08:26 97.3 20 09/09/17 04:00 3.0 Laboratory Tests Test 09/08/17 20:15 09/09/17 05:20 White Blood Count 9.1 K/UL (4.8-10.8) 8.0 K/UL (4.8-10.8) Red Blood Count 2.42 M/UL (4.70-6.10) L 2.76 M/UL (4.70-6.10) L Hemoglobin 7.6 G/DL (14.2-18.0) L 8.5 G/DL (14.2-18.0) L Hematocrit 23.2 % (42.0-52.0) L 26.3 % (42.0-52.0) L Mean Corpuscular Volume 96 FL (80-99) 95 FL (80-99) Mean Corpuscular Hemoglobin 31.5 PG (27.0-31.0) H 30.8 PG (27.0-31.0) Mean Corpuscular Hemoglobin Concent 32.9 G/DL (32.0-36.0) 32.3 G/DL (32.0-36.0) Red Cell Distribution Width 14.1 % (11.6-14.8) 14.8 % (11.6-14.8) Platelet Count 223 K/UL (150-450) 259 K/UL (150-450) Mean Platelet Volume 6.0 FL (6.5-10.1) L 6.2 FL (6.5-10.1) L Neutrophils (%) (Auto) % (45.0-75.0) 75.0 % (45.0-75.0) Lymphocytes (%) (Auto) % (20.0-45.0) 13.8 % (20.0-45.0) L Monocytes (%) (Auto) % (1.0-10.0) 10.7 % (1.0-10.0) H Eosinophils (%) (Auto) % (0.0-3.0) 0.2 % (0.0-3.0) Basophils (%) (Auto) % (0.0-2.0) 0.4 % (0.0-2.0) Differential Total Cells Counted 100 Neutrophils % (Manual) 76 % (45-75) H Lymphocytes % (Manual) 15 % (20-45) L Monocytes % (Manual) 9 % (1-10) Eosinophils % (Manual) 0 % (0-3) Basophils % (Manual) 0 % (0-2) Band Neutrophils 0 % (0-8) Platelet Estimate Adequate Platelet Morphology Normal Prothrombin Time 9.8 SEC (9.30-11.50) Prothromb Time International Ratio 1.0 (0.9-1.1) Activated Partial Thromboplast Time 56 SEC (23-33) H Sodium Level 148 MMOL/L (136-145) H Potassium Level 4.3 MMOL/L (3.5-5.1) Chloride Level 119 MMOL/L (98-107) H Carbon Dioxide Level 19 MMOL/L (21-32) L Anion Gap 10 mmol/L (5-15) Blood Urea Nitrogen 51 mg/dL (7-18) H Creatinine 2.3 MG/DL (0.55-1.30) H Estimat Glomerular Filtration Rate mL/min (>60) Glucose Level 105 MG/DL (74-106) Uric Acid 8.5 MG/DL (2.6-7.2) H Calcium Level 7.7 MG/DL (8.5-10.1) L Phosphorus Level 2.7 MG/DL (2.5-4.9) Magnesium Level 2.2 MG/DL (1.8-2.4) Total Bilirubin 0.5 MG/DL (0.2-1.0) Aspartate Amino Transf (AST/SGOT) 50 U/L (15-37) H Alanine Aminotransferase (ALT/SGPT) 18 U/L (12-78) Alkaline Phosphatase 45 U/L (46-116) L C-Reactive Protein, Quantitative 4.8 mg/dL (0.00-0.90) H Pro-B-Type Natriuretic Peptide 745 pg/mL (0-125) H Total Protein 5.8 G/DL (6.4-8.2) L Albumin 2.4 G/DL (3.4-5.0) L Globulin 3.4 g/dL Albumin/Globulin Ratio 0.7 (1.0-2.7) L Intake and Output 09/08/17 09/09/17 19:00 07:00 Intake Total 1025 ml 675 ml Output Total 800 ml Balance 1025 ml -125 ml Intake Oral 200 ml IV Total 825 ml 675 ml Output Urine Total 800 ml # Voids 2 # Bowel Movements 1 Objective General Appearance: WD/WN, no apparent distress, alert EENT: PERRL/EOMI, normal ENT inspection, TMs normal Neck: non-tender, normal alignment, supple, normal inspection Cardiovascular: normal peripheral pulses, normal rate, regular rhythm, no gallop/murmur, no JVD Respiratory/Chest: chest wall non-tender, lungs clear, normal breath sounds, no respiratory distress, no accessory muscle use Abdomen: normal bowel sounds, non tender, soft, no organomegaly, no mass Extremities: normal range of motion, non-tender Skin: normal pigmentation, warm/dry Assessment/Plan Problem List: (1) Generalized weakness (2) Elevated troponin I level Assessment & Plan: ?due to renal failure? See cardiology note. (3) CHF (congestive heart failure) Assessment & Plan: See cardiology consult. (4) Renal failure Assessment & Plan: ?Dehydration?-continue IV fluids Await renal ultrasound - see nephrology consult. (5) Rhabdomyolysis Assessment & Plan: Cont IV fluids. (6) Anemia Assessment & Plan: Iron studies pending. See GI consult Status: ALO Eduardo Sep 09, 2017 12:10
[2017-09-09] MEDS ORDERED: COLACE100 MG ORAL (12:13)
[2017-09-09] MEDS ORDERED: ASPIRIN81 MG ORAL (12:13)
[2017-09-09] MEDS ORDERED: NITROSTAT0.4 M1 SL (12:13)
[2017-09-09] MEDS ORDERED: METOPROLOL SUCC25 MG ORAL (12:13)
[2017-09-09] MEDS ORDERED: FLOMAX0.4 MG ORAL (12:13)
--- NOTE | 2017-09-09 13:55 | GI Initial Consult Note ---
WilliamsonIvy Bruno N.PBeni 09/09/17 1355: History of Present Illness General Date patient seen: Sep 09, 2017 Time patient seen: 11:00 Reason for Hospitalization: Generalized Weakness Referring physician: AMBER MASSEY Reason for Consultation: ANEMIA Present Illness HPI 87-year-old male presents ED for evaluation. EMS states that patient is weak and unable to care for himself. Customer Service Analyst told EMS that patient has not been eating well for the last few days has been bed bound. Patient states he feels weak. Has no energy. No appetite. Denies fevers chills. Denies chest pain shortness of breath. Patient states that he is not have any medical problems and is not taking medications. No aggravating relieving factors. Denies any other associated symptom. GI consulted for anemia evaluation. HPI noted above. Pt seen on floor, awake A&Ox4 NAD with no active s/sx of N/V/D. ROS limited, patient is poor historian. Labs show anemia, iron deficiency, transaminitis, hypoalbuminemia and decreased folate levels. Unknown history of endoscopy / colonoscopy. Home Meds Active Scripts Docusate Sodium* (COLACE*) 100 Mg Capsule, 100 MG ORAL TID for 30 Days, CAP Prov:VANDANA LY 09/09/17 Tamsulosin HCl (Flomax) 0.4 Mg Cap.er.24h, 0.4 MG ORAL BID for 30 Days, CAP Prov:VANDANA LY 09/09/17 Nitroglycerin (NITROSTAT) 0.4 Mg Tab.subl, 0.4 MG SL .Q5MIN X 3 DOSES Y for 30 Days, TAB Prov:VANDANA LY 09/09/17 Metoprolol Succinate* (METOPROLOL SUCCINATE*) 25 Mg Tab.er.24h, 25 MG ORAL DAILY for 30 Days, TAB Prov:VANDANA LY 09/09/17 Aspirin* (ASPIRIN*) 81 Mg Tab.chew, 81 MG ORAL DAILY for 30 Days, TAB Prov:VANDANA LY 09/09/17 Med list reviewed/reconciled: Yes Allergies: Coded Allergies: No Known Allergies (Unverified , 09/03/17) Patient History PMH Narrative Past Medical History: none Past Surgical History: none Pertinent Family History: none Social History: Denies: smoking, alcohol use, drug use Immunizations: UTD Reviewed Nursing Documentation: PMH: Agreed, PSxH: Agreed Nursing Documentation-PMH Past Medical History: No Stated History Social History: Denies: smoking, alcohol use, drug use, other Review of Systems All Other Systems: limited Physical Exam Vital Signs Date Time Temp Pulse Resp B/P (MAP) Pulse Ox O2 Delivery O2 Flow Rate FiO2 09/05/17 08:00 98.1 69 20 123/78 97 09/06/17 04:10 Room Air 09/07/17 07:26 3.0 36 Sp02 EP Interpretation: reviewed, normal Labs Laboratory Tests Test 09/08/17 20:15 09/09/17 05:20 White Blood Count 9.1 K/UL (4.8-10.8) 8.0 K/UL (4.8-10.8) Red Blood Count 2.42 M/UL (4.70-6.10) L 2.76 M/UL (4.70-6.10) L Hemoglobin 7.6 G/DL (14.2-18.0) L 8.5 G/DL (14.2-18.0) L Hematocrit 23.2 % (42.0-52.0) L 26.3 % (42.0-52.0) L Mean Corpuscular Volume 96 FL (80-99) 95 FL (80-99) Mean Corpuscular Hemoglobin 31.5 PG (27.0-31.0) H 30.8 PG (27.0-31.0) Mean Corpuscular Hemoglobin Concent 32.9 G/DL (32.0-36.0) 32.3 G/DL (32.0-36.0) Red Cell Distribution Width 14.1 % (11.6-14.8) 14.8 % (11.6-14.8) Platelet Count 223 K/UL (150-450) 259 K/UL (150-450) Mean Platelet Volume 6.0 FL (6.5-10.1) L 6.2 FL (6.5-10.1) L Neutrophils (%) (Auto) % (45.0-75.0) 75.0 % (45.0-75.0) Lymphocytes (%) (Auto) % (20.0-45.0) 13.8 % (20.0-45.0) L Monocytes (%) (Auto) % (1.0-10.0) 10.7 % (1.0-10.0) H Eosinophils (%) (Auto) % (0.0-3.0) 0.2 % (0.0-3.0) Basophils (%) (Auto) % (0.0-2.0) 0.4 % (0.0-2.0) Differential Total Cells Counted 100 Neutrophils % (Manual) 76 % (45-75) H Lymphocytes % (Manual) 15 % (20-45) L Monocytes % (Manual) 9 % (1-10) Eosinophils % (Manual) 0 % (0-3) Basophils % (Manual) 0 % (0-2) Band Neutrophils 0 % (0-8) Platelet Estimate Adequate Platelet Morphology Normal Prothrombin Time 9.8 SEC (9.30-11.50) Prothromb Time International Ratio 1.0 (0.9-1.1) Activated Partial Thromboplast Time 56 SEC (23-33) H Sodium Level 148 MMOL/L (136-145) H Potassium Level 4.3 MMOL/L (3.5-5.1) Chloride Level 119 MMOL/L (98-107) H Carbon Dioxide Level 19 MMOL/L (21-32) L Anion Gap 10 mmol/L (5-15) Blood Urea Nitrogen 51 mg/dL (7-18) H Creatinine 2.3 MG/DL (0.55-1.30) H Estimat Glomerular Filtration Rate mL/min (>60) Glucose Level 105 MG/DL (74-106) Uric Acid 8.5 MG/DL (2.6-7.2) H Calcium Level 7.7 MG/DL (8.5-10.1) L Phosphorus Level 2.7 MG/DL (2.5-4.9) Magnesium Level 2.2 MG/DL (1.8-2.4) Total Bilirubin 0.5 MG/DL (0.2-1.0) Aspartate Amino Transf (AST/SGOT) 50 U/L (15-37) H Alanine Aminotransferase (ALT/SGPT) 18 U/L (12-78) Alkaline Phosphatase 45 U/L (46-116) L C-Reactive Protein, Quantitative 4.8 mg/dL (0.00-0.90) H Pro-B-Type Natriuretic Peptide 745 pg/mL (0-125) H Total Protein 5.8 G/DL (6.4-8.2) L Albumin 2.4 G/DL (3.4-5.0) L Globulin 3.4 g/dL Albumin/Globulin Ratio 0.7 (1.0-2.7) L General Appearance: no apparent distress, alert Head: normocephalic EENT: PERRL/EOMI, normal ENT inspection Neck: supple Respiratory: normal breath sounds, no respiratory distress Cardiovascular: normal rate Gastrointestinal: normal inspection, non tender, soft, normal bowel sounds, non -distended Rectal: deferred Genitourinary: deferred Musculoskeletal: normal inspection, back normal Neurologic: alert, responsive Skin: normal inspection, normal color, no rash, warm/dry, palpation normal, well hydrated Lymphatic: normal inspection, no adenopathy Current Medications Current Medications Medications (Trade) Dose Ordered Sig/Josefina Route PRN Reason Start Time Stop Time Status Last Admin Dose Admin Acetaminophen (Tylenol) 650 mg Q4H PRN RECTAL Mild Pain (Pain Scale 1-3) 09/07/17 17:15 10/03/17 21:14 Aspirin (ASA) 81 mg DAILY ORAL 09/08/17 09:00 10/04/17 08:59 09/08/17 09:33 Bisacodyl (Dulcolax) 10 mg DAILYPRN PRN RECTAL Constipation 3rd Line Agent 09/07/17 21:15 10/03/17 21:14 Dextrose (Dextrose 50%) STAT PRN IV Hypoglycemia 09/07/17 21:15 10/03/17 21:14 Dextrose/Sodium Chloride 1,000 ml @ 75 mls/hr [id number] IV 09/07/17 15:00 10/06/17 14:59 09/09/17 06:39 Docusate Sodium (Colace) 100 mg TID ORAL 09/07/17 18:00 10/04/17 08:59 09/08/17 14:51 Heparin Sodium (Porcine) (Heparin 5000 units/ml) 5,000 units EVERY 8 HOURS SUBQ 09/07/17 22:00 10/03/17 21:59 09/08/17 21:22 Metoprolol Succinate (Toprol XL) 25 mg DAILY ORAL 09/08/17 09:00 10/05/17 08:59 Nitroglycerin (Ntg) 0.4 mg Q5MIN X 3 DOSES PRN SL Prn Chest Pain 09/07/17 14:30 10/03/17 21:14 Ondansetron HCl (Zofran) 4 mg Q6H PRN IVP Nausea & Vomiting 09/07/17 15:15 10/03/17 21:14 Polyethylene Glycol (Miralax) 17 gm DAILYPRN PRN ORAL Constipation 1st Line agent 09/07/17 21:15 10/03/17 21:14 Tamsulosin HCl (Flomax) 0.4 mg BID ORAL 09/07/17 18:00 10/06/17 10:59 09/08/17 09:33 GI: Plan Problems: (1) Anemia (2) Failure to thrive (3) Generalized weakness (4) CHF (congestive heart failure) (5) Renal insufficiency (6) Severe malnutrition Plan anemia work up reviewed >> iron deficiency + low folate supportive care / symptomatic treatment adv diet, push PO zofran prn monitor H&H, prn transfusions ppi folate daily iron replacement fu labs outpatient GI procedures Discussed with Dr. Matta. Thank you for this patient referral, we will follow. JOO MATTA 09/10/17 0905: History of Present Illness General Reason for Hospitalization: Generalized Weakness Present Illness Home Meds Active Scripts Docusate Sodium* (COLACE*) 100 Mg Capsule, 100 MG ORAL TID for 30 Days, CAP Prov:VANDANA LY 09/09/17 Tamsulosin HCl (Flomax) 0.4 Mg Cap.er.24h, 0.4 MG ORAL BID for 30 Days, CAP Prov:VANDANA LY 09/09/17 Nitroglycerin (NITROSTAT) 0.4 Mg Tab.subl, 0.4 MG SL .Q5MIN X 3 DOSES Y for 30 Days, TAB Prov:VANDANA LY 09/09/17 Metoprolol Succinate* (METOPROLOL SUCCINATE*) 25 Mg Tab.er.24h, 25 MG ORAL DAILY for 30 Days, TAB Prov:VANDANA LY 09/09/17 Aspirin* (ASPIRIN*) 81 Mg Tab.chew, 81 MG ORAL DAILY for 30 Days, TAB Prov:VANDANA LY 09/09/17 Allergies: Coded Allergies: No Known Allergies (Unverified , 09/03/17) GI: Plan Plan The patient was seen and examined at bedside and all new and available data was reviewed in the patients chart. I agree with the above findings, impression and plan. (Patient seen earlier today. Signature stamp does not reflect patient encounter time.). - MD Teri Pascual Anh Bruno Gambino Sep 09, 2017 13:55 JOO MATTA Sep 10, 2017 09:05
[2017-09-09] MEDS ORDERED: NS 500ML ONE (14:19)
[2017-09-09] MEDS ORDERED: D5 1/2NS 1000ml IV ONE (14:19)
[2017-09-09] MEDS ORDERED: Tubing Blood Filter IV ONE (14:19)
--- NOTE | 2017-09-09 15:15 | Nephrology Progress Note ---
Assessment/Plan Problem List: (1) Renal failure (2) Rhabdomyolysis (3) CHF (congestive heart failure) (4) Failure to thrive Assessment Status: H&H lower- improved post transfusion Cr lower renal failure- ? acute ? Rhabdo Cr rising ?Underlying CKD , Proteinuria Elevated troponin : Echo ejection fraction of 60% to 65% and no wall motion abnormality. Anemia Plan Plan: brown transfused Hydrate- Monitor CPK avoid Nephrotoxics Monitor renal parameters keep BP in check start Flomax per orders if DC , FU renal parameters OP Subjective ROS Limited/Unobtainable: No Constitutional: Reports: malaise Subjective seen at 10 am Objective Objective Last 24 Hour Vital Signs Date Time Temp Pulse Resp B/P (MAP) Pulse Ox O2 Delivery O2 Flow Rate FiO2 09/09/17 12:00 97.7 68 20 123/80 97 09/09/17 10:56 97 Room Air 21 09/09/17 10:56 Room Air 21 09/09/17 09:37 76 118/84 09/09/17 08:26 97.3 76 20 118/84 100 09/09/17 04:00 97.0 82 21 122/75 98 Room Air 3.0 21 09/09/17 00:00 97.3 79 21 120/75 98 09/08/17 21:00 97 Room Air 21 09/08/17 21:00 Room Air 21 09/08/17 20:00 97.5 87 20 121/59 94 09/08/17 16:00 98.0 79 18 120/65 Intake and Output 09/08/17 09/09/17 19:00 07:00 Intake Total 1025 ml 675 ml Output Total 800 ml Balance 1025 ml -125 ml Intake Oral 200 ml IV Total 825 ml 675 ml Output Urine Total 800 ml # Voids 2 # Bowel Movements 1 Laboratory Tests 09/08/17 20:15: White Blood Count 9.1, Red Blood Count 2.42L, Hemoglobin 7.6L, Hematocrit 23.2L , Mean Corpuscular Volume 96, Mean Corpuscular Hemoglobin 31.5H, Mean Corpuscular Hemoglobin Concent 32.9, Red Cell Distribution Width 14.1, Platelet Count 223, Mean Platelet Volume 6.0L, Neutrophils (%) (Auto) , Lymphocytes (%) ( Auto) , Monocytes (%) (Auto) , Eosinophils (%) (Auto) , Basophils (%) (Auto) , Differential Total Cells Counted 100, Neutrophils % (Manual) 76H, Lymphocytes % (Manual) 15L, Monocytes % (Manual) 9, Eosinophils % (Manual) 0, Basophils % ( Manual) 0, Band Neutrophils 0, Platelet Estimate Adequate, Platelet Morphology Normal 09/09/17 05:20: White Blood Count 8.0, Red Blood Count 2.76L, Hemoglobin 8.5L, Hematocrit 26.3L , Mean Corpuscular Volume 95, Mean Corpuscular Hemoglobin 30.8, Mean Corpuscular Hemoglobin Concent 32.3, Red Cell Distribution Width 14.8, Platelet Count 259, Mean Platelet Volume 6.2L, Neutrophils (%) (Auto) 75.0, Lymphocytes ( %) (Auto) 13.8L, Monocytes (%) (Auto) 10.7H, Eosinophils (%) (Auto) 0.2, Basophils (%) (Auto) 0.4, Prothrombin Time 9.8, Prothromb Time International Ratio 1.0, Activated Partial Thromboplast Time 56H, Sodium Level 148H, Potassium Level 4.3, Chloride Level 119H, Carbon Dioxide Level 19L, Anion Gap 10 , Blood Urea Nitrogen 51H, Creatinine 2.3H, Estimat Glomerular Filtration Rate , Glucose Level 105, Uric Acid 8.5H, Calcium Level 7.7L, Phosphorus Level 2.7, Magnesium Level 2.2, Total Bilirubin 0.5, Aspartate Amino Transf (AST/SGOT) 50H , Alanine Aminotransferase (ALT/SGPT) 18, Alkaline Phosphatase 45L, C-Reactive Protein, Quantitative 4.8H, Pro-B-Type Natriuretic Peptide 745H, Total Protein 5.8L, Albumin 2.4L, Globulin 3.4, Albumin/Globulin Ratio 0.7L Height (Feet): 6 Height (Inches): 0.00 Weight (Pounds): 180 General Appearance: no apparent distress, lethargic Respiratory/Chest: decreased breath sounds Abdomen: soft Genitourinary/Rectal: other - brown + Objective no other changes CORNINE WIGGINS Sep 09, 2017 15:15
--- NOTE | 2017-09-09 19:25 | Pulmonology Progress Note ---
Assessment/Plan Problems: (1) Severe malnutrition (2) Anemia (3) Elevated troponin I level (4) Renal failure (5) CHF (congestive heart failure) (6) Generalized weakness Assessment/Plan improving all noted f/u electrolytes dc planning soon. f/u renal parameters avoid nephrotoxics Subjective ROS Limited/Unobtainable: No Allergies: Coded Allergies: No Known Allergies (Unverified , 09/03/17) Objective Last 24 Hour Vital Signs Date Time Temp Pulse Resp B/P (MAP) Pulse Ox O2 Delivery O2 Flow Rate FiO2 09/09/17 12:00 97.7 68 20 123/80 97 09/09/17 10:56 97 Room Air 21 09/09/17 10:56 Room Air 21 09/09/17 09:37 76 118/84 09/09/17 08:26 97.3 76 20 118/84 100 09/09/17 04:00 97.0 82 21 122/75 98 Room Air 3.0 21 09/09/17 00:00 97.3 79 21 120/75 98 09/08/17 21:00 97 Room Air 21 09/08/17 21:00 Room Air 21 09/08/17 20:00 97.5 87 20 121/59 94 Intake and Output 09/08/17 09/09/17 19:00 07:00 Intake Total 1025 ml 675 ml Output Total 800 ml Balance 1025 ml -125 ml Intake Oral 200 ml IV Total 825 ml 675 ml Output Urine Total 800 ml # Voids 2 # Bowel Movements 1 Objective General Appearance: WD/WN HEENT: normocephalic, atraumatic Respiratory/Chest: chest wall non-tender, lungs clear Abdomen: normal bowel sounds, soft, non tender Genitourinary: normal external genitalia Skin: no lesions Laboratory Tests 09/08/17 20:15: White Blood Count 9.1, Red Blood Count 2.42L, Hemoglobin 7.6L, Hematocrit 23.2L , Mean Corpuscular Volume 96, Mean Corpuscular Hemoglobin 31.5H, Mean Corpuscular Hemoglobin Concent 32.9, Red Cell Distribution Width 14.1, Platelet Count 223, Mean Platelet Volume 6.0L, Neutrophils (%) (Auto) , Lymphocytes (%) ( Auto) , Monocytes (%) (Auto) , Eosinophils (%) (Auto) , Basophils (%) (Auto) , Differential Total Cells Counted 100, Neutrophils % (Manual) 76H, Lymphocytes % (Manual) 15L, Monocytes % (Manual) 9, Eosinophils % (Manual) 0, Basophils % ( Manual) 0, Band Neutrophils 0, Platelet Estimate Adequate, Platelet Morphology Normal 09/09/17 05:20: White Blood Count 8.0, Red Blood Count 2.76L, Hemoglobin 8.5L, Hematocrit 26.3L , Mean Corpuscular Volume 95, Mean Corpuscular Hemoglobin 30.8, Mean Corpuscular Hemoglobin Concent 32.3, Red Cell Distribution Width 14.8, Platelet Count 259, Mean Platelet Volume 6.2L, Neutrophils (%) (Auto) 75.0, Lymphocytes ( %) (Auto) 13.8L, Monocytes (%) (Auto) 10.7H, Eosinophils (%) (Auto) 0.2, Basophils (%) (Auto) 0.4, Prothrombin Time 9.8, Prothromb Time International Ratio 1.0, Activated Partial Thromboplast Time 56H, Sodium Level 148H, Potassium Level 4.3, Chloride Level 119H, Carbon Dioxide Level 19L, Anion Gap 10 , Blood Urea Nitrogen 51H, Creatinine 2.3H, Estimat Glomerular Filtration Rate , Glucose Level 105, Uric Acid 8.5H, Calcium Level 7.7L, Phosphorus Level 2.7, Magnesium Level 2.2, Total Bilirubin 0.5, Aspartate Amino Transf (AST/SGOT) 50H , Alanine Aminotransferase (ALT/SGPT) 18, Alkaline Phosphatase 45L, C-Reactive Protein, Quantitative 4.8H, Pro-B-Type Natriuretic Peptide 745H, Total Protein 5.8L, Albumin 2.4L, Globulin 3.4, Albumin/Globulin Ratio 0.7L DIPIKA FAIRCHILD Sep 09, 2017 19:25
--- NOTE | 2017-09-11 13:26 | Discharge Summary ---
Discharge Summary Hospital Course Date of Admission Sep 03, 2017 at 16:43 Date of Discharge Sep 09, 2017 at 14:20 Admitting Diagnosis weakness HPI Edouard Jr Aníbal is a 87 year old male who was admitted on Sep 03, 2017 at 16:43 for Weakness Hospital Course [id number] Discharge Discharge Disposition Patient was discharged to SNF/Subacute Facility(03) Discharge Diagnoses: Kourtney Pineda NP Sep 11, 2017 13:26
--- NOTE | 2017-09-11 19:30 | Discharge Summary 2 SIG ---
DATE OF ADMISSION: 09/03/2017 DATE OF DISCHARGE: 09/09/2017 CONSULTANTS: 1. Maxine Fountain M.D. 2. Max Wiley M.D. 3. Guero Travis M.D. BRIEF HOSPITAL COURSE: The patient is an 87-year-old male, who presented with generalized weakness. He lives alone and complained of increasing weakness. On evaluation at ED, was found to have elevated BNP. Troponin 0.076. Chest x-ray was negative. He was admitted for generalized weakness and elevated troponin, renal failure and congestive heart failure. Creatinine was 2.4. The patient has renal failure and was given IV hydration and Flomax. Renal ultrasound was negative for hydronephrosis with bilateral renal cyst. Troponin elevation were not too high. Repeat EKG levels are flat. EKG showed sinus rhythm with left anterior fascicular block with no acute ST to T-wave abnormalities. He has occasional PVCs. Echocardiogram done showed ejection fraction of 60% to 65% with no wall motion abnormality. He was given aspirin and low-dose beta-gilma. The patient had rhabdomyolysis with elevated CK 1336, which could be the cause of the patient's renal failure. He had short runs of SVT he was given Toprol-XL 25 mg daily. There was a drop in patient's hemoglobin. Anemia workup showed iron deficiency and folate deficiency. He was given iron replacement and proton-pump inhibitors. He received two units packed RBC blood transfusion. He was eventually discharged to a snf. FINAL DIAGNOSES: 1. Acute renal failure. 2. Rhabdomyolysis. 3. Anemia requiring blood transfusion. 4. Anemia due to iron deficiency and folic acid deficiency. 5. Elevated troponin, likely due to renal failure. 6. Dysphagia. 7. Short run of supraventricular tachycardia. 8. Failure to thrive/severe malnutrition. DISPOSITION: The patient was discharged to [facility]. DISCHARGE MEDICATION: Refer to medication list. Aj Lemon M.D. I have been assigned to dictate discharge summary on this account and I was not involved in the patient's management. Kourtney Pineda N.P. DR: FLAKITO JOB#: [id number] CC: [id number]
--- NOTE | 2017-09-14 21:47 | Cardiology Report ---
APPROVED REPORT EXAM: Two-dimensional and M-mode echocardiogram with Doppler and color Doppler. INDICATION ABNORMAL CARD [facility] STUDY M-Mode DIMENSIONS Left Atrium (MM)3.9 (1.6-4.0cm) Aortic Root3.3 (2.0-3.7cm) Aortic Cusp Exc.2.5 (1.5-2.0cm) Technically difficult study due to poor acoustical windows. M-mode measurements of left ventricle not obtainable due to cardiac position (angle) Normal left ventricular chamber size, systolic function and wall motion to extent visualized. Left ventricular ejection fraction estimated to be 60-65%. No evidence of left ventricular hypertrophy by 2-D. No evidence of pericardial effusion. All othe cardiac chamber sizes are within normal limits. Focal aortic valve sclerosis with adequate cusp excursion. Thickened mitral valve leaflets with normal excursion. Mitral annulus and aortic root calcification. Pulmonic valve not well visualized. Normal tricuspid valve structure. Subcostal views can not obtained. A color flow and spectral Doppler study was performed and revealed: Mild aortic regurgitation. Trace mitral regurgitation. Normal left ventricular diastolic function. Trace tricuspid regurgitation. Tricuspid systolic velocities suggests peak right ventricular systolic pressure of 23 mmHg . No Pulmonic regurgitation present.
--- NOTE | 2017-09-15 00:08 | Cardiology Report ---
APPROVED REPORT EKG Measurement Heart [id number] Normal sinus rhythm Left anterior fascicular block Cannot rule out Anteroseptal infarct, age undetermined Abnormal ECG
--- NOTE | 2017-09-15 00:12 | Cardiology Report ---
APPROVED REPORT EKG Measurement Heart [id number] Sinus rhythm with occasional premature ventricular complexes Left anterior fascicular block Cannot rule out Anteroseptal infarct, age undetermined Abnormal ECG
== END 2017-09-09 14:20 | DRG 682 ==
LOC: EDBD 14:56 → EMR 15:08 → 2E 16:43 → EDBEDREQ 19:27 → 4E 09-07 14:25
PROC: 30233N1 Transfusion of Nonautologous Red Blood Cells into Peripheral Vein, Percutaneous Approach (ICD-10-PCS; principal; 2017-09-08)
DX: N17.9 Acute kidney failure, unspecified (principal); E43 Unspecified severe protein-calorie malnutrition; M62.82 Rhabdomyolysis; I50.9 Heart failure, unspecified; R13.10 Dysphagia, unspecified; I47.1 Supraventricular tachycardia; R62.7 Adult failure to thrive; Z23 Encounter for immunization; Z60.2 Problems related to living alone; D52.9 Folate deficiency anemia, unspecified; D50.9 Iron deficiency anemia, unspecified; I44.4 Left anterior fascicular block; Z68.24 Body mass index [BMI] 24.0-24.9, adult
CPT/HCPCS: 36415; 71010; 76775; 80048; 80053; 80061; 80076; 81003; 82465; 82550; 82553; 82607; 82728; 82746; 83036; 83540; 83550; 83735; 83880; 84100; 84443; 84484; 84550; 85007; 85025; 85610; 85730; 86140; 86850; 86900; 86901; 86920; 90630; 90732; 93005; 93306; 94760; 99285